=== PATIENT | female | born 1955 | race Caucasian/White ===

== ENCOUNTER 2019-01-31 10:55 | Outpatient (REF) | payer SELFPAY ==
[2019-01-31 13:54] LABS: TSH 1.33 uIU/mL (0.358-3.74)
== END 2019-01-31 11:15 ==
LOC: NCHCN 10:55
PROVIDERS: PCP Nurse Practitioner Family; Visit Provider Nurse Practitioner Family
DX: E03.9 Hypothyroidism, unspecified (principal)
CPT/HCPCS: 84443

== ENCOUNTER 2019-04-09 08:39 | Inpatient (IN) | payer SELFPAY ==
[2019-04-09] VITALS (13 sets, daily range): BP systolic 146–200; BP diastolic 61–104; PULSE 60–96; RESP 14–31; TEMP 36.2–36.7; O2SAT 92–97
--- NOTE | 2019-04-09 08:40 | W.ED.GENAD ---
Discharge Plan Disposition Patient Disposition: [facility] INPATIENT Condition: Good Discharge Details Chief Complaint: Abd Prob Clinical Impression: Gallstone, Abdominal pain, RUQ Admit Date/Time: 04/09/19 13:05 Admit Provider: Edel Ken Attending Provider: Edel Ken Primary Care Provider: Ema Perez ED Provider: Farshad Santillan Medical Decision Making This is a pleasant 63-year-old female with a past medical history of thyroid disease, she presents today for evaluation of right upper quadrant abdominal pain. 1 week ago she developed symptoms of an upper respiratory infection with cough, productive sputum. She was given oral steroids and azithromycin and a puffer. She has had this for 4 days and noticed a notable improvement in her cough, however she has had a continued significant increase in right upper quadrant pain over the last week. She had an episode of notable diarrhea this morning. No vomiting. She is still eating. Exam demonstrates notable abdominal distention, bowel sounds are present, bedside portable limited ultrasound demonstrates gallbladder with questionable mild pericholecystic fluid, gallbladder wall is around 3.5 to 4 cm and notably hyperechoic. Differential includes gallbladder pathology, pancreatitis, notable distention potential gastritis or obstruction less likely. Patient does not have insurance, we had a long discussion about the risks and benefits of imaging work-up, cost, and risk for lack of complete diagnosis. Patient understands these, and is agreed to go ahead with laboratory and imaging work-up. We will rehydrate, give Toradol for pain, Zofran for nausea and reassess. 1 PM. Patient was reassessed. Laboratory work-up is returned benign. CT scan results have returned and demonstrate a notable large stone in the neck of the gallbladder is most likely the source of the patient's pain. Although she has had mild improvement with the Toradol, pain is still significantly present. We will give Ofirmev, she continues to state that she does not want any narcotics as this causes severe vomiting for quite some time. Patient the patient's continued symptomatology we have contacted the surgeon Dr. Hancock, discussed the case with her. She has come and assessed the patient himself. She does feel that the patient would be a good candidate for surgery in the next 24 hours. Patient will be admitted to the floor as her pain is not managed with oral medications. We discussed the plan with the patient. As well as Dr. Hancock. I have extensively reviewed the treatment plan with the patient. I have addressed all patient concerns at this time. I have also discussed the plan with the admitting physician and they agree with the current assessment and plan and have agreed to assume responsibility for the patient. All parties demonstrate verbal understanding and agreement with our assessment and plan at this time. EKG 9: 05 Rate 76, intervals normal, sinus rhythm, no significant ST elevations or depressions. Small Q waves in lead II, III and aVF, potentially from previous old infarct. No evidence of STEMI. FINDINGS: Lungs: Unremarkable. No consolidation. Pleural space: Unremarkable. No pleural effusion. No pneumothorax. Heart/Mediastinum: Unremarkable. No cardiomegaly. Bones/joints: Unremarkable. IMPRESSION: No acute findings. Dictated and Authenticated by: Nacho Ramirez MD. Ordering:FERNANDO Hollingsworth MD EXAM: CT Abdomen and Pelvis With Contrast EXAM DATE/TIME: 04/09/2019 8:58 AM CLINICAL HISTORY: 63 years old, female; Abdominal pain; Patient HX: Distention, ruq pain TECHNIQUE: Imaging protocol: Axial computed tomography images of the abdomen and pelvis with intravenous contrast. Coronal and sagittal reformatted images were created and reviewed. COMPARISON: No relevant prior studies available. FINDINGS: Liver: Normal. No mass. Gallbladder and bile ducts: Solitary gallstone within the gallbladder. Pancreas: Normal. No ductal dilation. Spleen: One or more accessory splenules. Adrenals: Left adrenal hyperplasia. Kidneys and ureters: Normal. No hydronephrosis. Stomach and bowel: Moderate diverticulosis. Appendix: Normal appendix. Intraperitoneal space: Normal. No free air. No significant fluid collection. Vasculature: Calcification of the abdominal aorta and/or iliac arteries consistent with atherosclerotic vessel disease. Lymph nodes: Normal. No enlarged lymph nodes. Bladder: Unremarkable as visualized. Reproductive: Unremarkable as visualized. Bones/joints: There are postoperative changes over the left hip with metallic artifact. Soft tissues: Unremarkable. IMPRESSION: 1. Solitary gallstone within the gallbladder. 2. Normal appendix. 3. Moderate diverticulosis. Dictated and Authenticated by: Nacho Ramirez MD. Ordering:MICHELLE Yen MD HPI General Date/Time Provider Initiated Documentation: 04/09/19 08:39. HPI Narrative: This is a 63-year-old female with a past medical history of tobacco abuse for which she states she quit this past July, as well as thyroid disease, who presents today for evaluation of right upper quadrant abdominal pain. Patient states that one week ago she developed upper respiratory symptoms with cough, sore throat and productive sputum. After a day or so of cough she developed right upper quadrant abdominal pain made worse with coughing. She was given steroids azithromycin and a puffer and has been taking these for the last 4 days and has not noticed a significant improvement in the cough and sputum productivity however she is also noticed that the right upper quadrant pain is significantly worsened, even with the improvement of the coughing. Additionally she has had severe bloating, and diarrhea that started today. She denies any vomiting but does admit to mild nausea. She denies any hematochezia melena or acholic stool. She denies any fever or chills. She has been taking Tylenol and Motrin daily but this is not improve the pain at all. She denies any chest pain, chest heaviness, chest tightness, arm neck or shoulder pain. She denies any alcohol intake. She denies any previous abdominal surgery. She denies any other complaints at this time. Related Data Home Medications Medication Instructions Recorded Confirmed levothyroxine 75 mcg PO DAILY 12/12/12 04/09/19 acetaminophen [Tylenol] 1,000 mg PRN PRN 05/05/15 04/09/19 azithromycin 250 mg PO DIRECTED #6 tablet 07/12/15 04/09/19 albuterol sulfate 2 puff INHALATION PRN PRN 04/09/19 04/09/19 prednisone 40 mg PO DAILY 04/09/19 04/09/19 Previous Rx's Medication Instructions Recorded azithromycin 250 mg PO DIRECTED #6 tablet 07/12/15 Allergies Allergy/AdvReac Type Severity Reaction Status Date / Time Opioids - Morphine Analogues AdvReac Mild Nausea/Vomi Unverified 04/09/19 12:50 ting Review of Systems Review of Systems All systems reviewed & are unremarkable except as noted in HPI and below PFSH Social History Smoking/Tobacco Use Status: Former Tobacco Use Alcohol Intake: never Drug use: Never Substance use type: does not use Do you feel safe at home: Yes Exam Narrative Exam Narrative: 1.Const: Well-nourished, Well-developed, appearing stated age 2.Eyes: PERRL, no conjunctival injection, and symmetrical lids. 3.ENT: Atraumatic external nose and ears. Moist MM. Neck: Symmetric, trachea midline, No thyromegaly. 4.CVS: +S1/S2, No murmurs or gallops. Peripheral pulses 2+ and equal in all extremities. Brisk capillary refill in all extremities. 5.RESP: Unlabored respiratory effort. Clear to auscultation bilaterally. No wheezes rales or rhonchi 6.GI: Slightly firm, notably distended, bowel sounds present, notable right upper quadrant tenderness. No pain in the right lower quadrant, no pain in the left lower quadrant. Mild epigastric tenderness. No hepatosplenomegaly. 7.MSK: Normocephalic/Atraumatic, Extremities w/o deformity or ttp No cyanosis or clubbing, Normal movement of all extremities 8.Skin: Warm, Dry. No rashes or lesions. 9.Neuro: supervisor agency appointments II-XII grossly intact. Sensation grossly intact, no focal neurologic deficits. 10.Psych: (AAO) x3. Appropriate mood and affect
--- NOTE | 2019-04-09 08:55 | DI.RAD_ITS ---
SYMPTOM/DIAGNOSIS: PNEUMONIA PA AND LATERAL CHEST: The heart is not enlarged. The lungs appear generally clear with some apparent changes of scarring. No pleural effusion is seen. CONCLUSION: No evidence of acute disease. ABDOMEN AND PELVIC CT: CT examination of the abdomen and pelvis was performed with a bolus infusion of 100 cc's of Omnipaque 350 and ingestion of dilute barium. Images obtained through the lung bases are unremarkable. Liver, spleen and pancreas appear normal. Note is made of cholelithiasis. No biliary dilatation. Adrenals and kidneys appear normal. Note is made of a large amount of fecal material in the cecum but no gross evidence of obstruction. Appendix is normal. No abdominal or pelvic adenopathy. No abdominal or pelvic wall hernia. Note is made of apparent endometrial thickening of the uterus. Correlation with pelvic ultrasound recommended. CONCLUSION: 1. Cholelithiasis. 2. Question endometrial thickening of the uterus, correlation with pelvic ultrasound is recommended to evaluate the possibility of endometrial thickening in this postmenopausal patient.
[2019-04-09] MEDS: Ketorolac 30 MG/ML VIAL IVP (09:15)
[2019-04-09] MEDS: Ondansetron 4 MG/2 ML VIAL IVP (09:15)
[2019-04-09 09:24] LABS: Abs Immature Grans 0.12 k/cumm (0.0-0.09); Absolute Basophil Count 0.04 k/cumm (0.0-0.2); Absolute Eosinophil Count 0.07 k/cumm (0.0-0.7); Absolute Lymphocyte Count 2.62 k/cumm (1.2-3.4); Absolute Monocyte Count 0.81 k/cumm (0.11-0.7); Absolute Neutrophil Count 5.83 k/cumm (1.2-6.7); Basophils % 0.4; Eosinophils % 0.7; HCT 41.1 % (36.0-46.0); HGB 13.6 g/dL (12.0-15.5); Immature Grans % 1.3; Lymphocytes % 27.6; Mean Corp. HGB Concentration 33.1 g/dL (32.0-36.0); Mean Corpuscular Hemoglobin 30.7 pg (27.0-33.0); Mean Corpuscular Volume 92.8 fL (80-95); Mean Platelet Volume 10.2 fL (8.0-11.0); Monocytes % 8.5; Neutrophils % 61.5; Platelet Count 265 x1000/uL (130-400); RBC 4.43 m/cumm (4.00-5.20); RBC Distribution Width 13.5 % (11.7-14.6); White Blood Cell Count 9.49 k/cumm (4.4-10.8)
[2019-04-09 09:40] LABS: ALT 20 U/L (12-78); AST 11 U/L (15-37); Albumin 3.5 g/dL (3.4-5.0); Alkaline Phosphatase 94 U/L (46-116); Anion Gap 9.2 mmol/L (3-11); BUN 16 mg/dL (7-18); Bilirubin, Total 0.5 mg/dL (0.2-1.0); CO2 26.8 mmol/L (21.0-32.0); Calcium 8.7 mg/dL (8.5-10.1); Chloride 104 mmol/L (98-107); Estimated GFR 56.18 (mL/min/1.73m2); Glucose 88 mg/dL (70-100); Lipase 115 U/L (73-393); Potassium 3.5 mmol/L (3.5-5.1); Sodium 140 mmol/L (136-145); Total Protein 7.3 g/dL (6.4-8.2)
[2019-04-09 09:42] LABS: Troponin I < 0.05 ng/mL (0.00-0.06)
[2019-04-09] MEDS: Omnipaque 350 MG/ML 100 ML BTL IJ (10:24)
[2019-04-09] MEDS: Omnipaque 350 MG/ML 50 ML BTL PO (10:25)
[2019-04-09] MEDS: Breeza Beverage 473 ML BTL PO (10:25)
--- NOTE | 2019-04-09 10:35 | DI.VRAD_ITS ---
Addendum created by Nacho Ramirez MD on 04/09/2019 11:00:10 AM EDT THIS REPORT CONTAINS FINDINGS THAT MAY BE CRITICAL TO PATIENT CARE. The findings were verbally communicated via telephone conference with CABRERA CONNELL at 11:00 AM EDT on 04/09/2019. The findings were acknowledged and understood. Initial report created on 04/09/2019 10:35:12 AM EDT EXAM: CT Abdomen and Pelvis With Contrast EXAM DATE/TIME: 04/09/2019 8:58 AM CLINICAL HISTORY: 63 years old, female; Abdominal pain; Patient HX: Distention, ruq pain TECHNIQUE: Imaging protocol: Axial computed tomography images of the abdomen and pelvis with intravenous contrast. Coronal and sagittal reformatted images were created and reviewed. COMPARISON: No relevant prior studies available. FINDINGS: Liver: Normal. No mass. Gallbladder and bile ducts: Solitary gallstone within the gallbladder. Pancreas: Normal. No ductal dilation. Spleen: One or more accessory splenules. Adrenals: Left adrenal hyperplasia. Kidneys and ureters: Normal. No hydronephrosis. Stomach and bowel: Moderate diverticulosis. Appendix: Normal appendix. Intraperitoneal space: Normal. No free air. No significant fluid collection. Vasculature: Calcification of the abdominal aorta and/or iliac arteries consistent with atherosclerotic vessel disease. Lymph nodes: Normal. No enlarged lymph nodes. Bladder: Unremarkable as visualized. Reproductive: Unremarkable as visualized. Bones/joints: There are postoperative changes over the left hip with metallic artifact. Soft tissues: Unremarkable. IMPRESSION: 1. Solitary gallstone within the gallbladder. 2. Normal appendix. 3. Moderate diverticulosis. Dictated and Authenticated by: Nacho Ramirez MD. Ordering:MICHELLE Yen MD
[2019-04-09] MEDS: ACETAMINOPHEN 1,000 MG/100 ML BTL 400 MG IVPB ×3 (12:21→20:01)
[2019-04-09 12:30] LABS: Bilirubin Negative (Negative); Blood Trace-intact (Negative); Clarity Clear (Clear); Glucose Negative (Negative); Ketones Negative (Negative); Leukocyte Esterase Negative (Negative); Nitrite Negative (Negative); Urobilinogen 0.2 EU/dL (Up TO 0.2)
--- NOTE | 2019-04-09 12:44 | DI.VRAD_ITS ---
EXAM: XR Chest, 2 Views EXAM DATE/TIME: 04/09/2019 12:33 PM CLINICAL HISTORY: 63 years old, female; Shortness of breath TECHNIQUE: Imaging protocol: XR of the chest, 2 views. COMPARISON: CR CHEST 2 VIEWS PA,LAT 10/08/2016 1:13 PM FINDINGS: Lungs: Unremarkable. No consolidation. Pleural space: Unremarkable. No pleural effusion. No pneumothorax. Heart/Mediastinum: Unremarkable. No cardiomegaly. Bones/joints: Unremarkable. IMPRESSION: No acute findings. Dictated and Authenticated by: Nacho Ramirez MD. Ordering:FERNANDO Hollingsworth MD
[2019-04-09 12:52] LABS: Bacteria Negative HPF (Negative); C & S Indicated? No; Casts Negative LPF (Negative); Crystals Negative HPF (Negative); Epithelial Cells Rare HPF (Negative); Mucus Negative (Negative); RBC 0-2 (0-2); WBC Negative HPF (0-5)
--- NOTE | 2019-04-09 13:50 | HPE_ITS ---
Date of service: 04/09/19 Time of Service: 13:50 Assessment and Plan (1) Impacted gallstone of cystic duct: Current visit: Yes Status: Acute Patient is doing okay. We are having a hard time controlling her pain. She is received Toradol and Tylenol. These do not really touch it. She cannot take narcotics. She is very nauseated she cannot take any fluids. No fever no white count. Her chest x-ray is clear. But she was on a high dose of steroids for the past 5 days and consider stress dose before surgery because we cannot get her pain in control we will admit her for pain management and plan doing surgery in a.m. I did discuss with her what she could expect during the procedure post procedurally recovery time and risks. Risks include but are not limited to: Bleeding, infection, pneumonia, blood clots,. Possible damage to bowel, bladder, blood vessels, bile ducts. (Possible open procedure. Possible both cholecystogram. Possible need for stone extraction if she does have a ileus. Possible open procedure. Possible complications from anesthesia. She will need to be off work for about a week afterwards. She will be admitted and started on antibiotics and supportive care. History of Present Illness Consults Consult date: 04/09/19 Requesting physician: Farshad Santillan Narrative: From ed notes: This is a pleasant 63-year-old female with a past medical history of thyroid disease, she presents today for evaluation of right upper quadrant abdominal pain. 1 week ago she developed symptoms of an upper respiratory i nfection with cough, productive sputum. She was given oral steroids and azithromycin and a puffer. She has had this for 4 days and noticed a notable improvement in her cough, however she has had a continued significant increase in right upper quadrant pain over the last week. She had an episode of notable diarrhea this morning. No vomiting. She is still eating. Exam demonstrates notable abdominal distention, bowel sounds are present, bedside portable limited ultrasound demonstrates gallbladder with questionable mild pericholecystic fluid, gallbladder wall is around 3.5 to 4 cm and notably hyperechoic. Patient does not have insurance, prior to the last few days pt has had no s/s. She has signif pain and is not able to get comfortable. feels nauseated. Diarrhea yest. Very bloated and distended. Rads was queried about a gallstone ileus- they did not think this was a concern. She did not know she had gasslstones. She has not had problems w/ H/I. No problems w/ RUQ pain in past. No problems w/ back pain or diarrhea. she was on 20mg prednisone for her nroncitis. She did quit smoking 9m ago. Review of Systems Review of Systems All systems reviewed & are unremarkable except as noted in HPI and below Constitutional Reports as per HPI, Reports system reviewed and no additional complaints, except as docu, Denies anorexia, Denies chills, Denies difficulty sleeping, Denies fatigue, Denies headache(s), Denies lethargy, Denies malaise, Denies poor appetite, Denies weakness, Denies weight gain and Denies weight loss Eyes Reports as per HPI, Reports system reviewed and no additional complaints, except as docu and Denies change in vision ENT Reports system reviewed and no additional complaints, except as docu, Reports as per HPI, Denies change in voice, Denies dental pain, Denies dysphagia, Denies dizziness, Denies facial pain, Denies headache(s) and Denies odynophagia Cardiovascular Reports as per HPI, Reports system reviewed and no additional complaints, except as docu, Denies chest pain, Denies chest pain with activity, Denies syncope, Denies leg edema and Denies dyspnea Respiratory Reports as per HPI, Reports system reviewed and no additional complaints, except as docu, Denies chest congestion, Denies cough, Denies pain with cough and Denies dyspnea Gastrointestinal Reports as per HPI, Reports system reviewed and no additional complaints, except as docu, Reports abdominal pain, Reports bloating, Denies change in bowel habits, Denies change in stool character, Denies constipation, Reports cramping, Denies dysphagia, Denies early satiety, Reports heartburn, Reports diarrhea, Reports loose stools, Reports nausea, Denies odynophagia and Denies vomiting Comments: only sx ws post tubal Musculoskeletal Reports system reviewed and no additional complaints, except as docu, Reports as per HPI, Denies abnormal gait, Denies arthralgias and Denies muscle weakness Integumentary/Breasts Reports system reviewed and no additional complaints, except as docu, Reports as per HPI, Denies changing lesions, Denies new lesions and Denies jaundice Neurologic Reports system reviewed and no additional complaints, except as docu, Reports as per HPI, Denies abnormal speech, Denies abnormal gait, Denies dizziness, Denies syncope, Denies headache(s), Denies memory loss and Denies weakness Psychiatric Reports system reviewed and no additional complaints, except as docu, Reports as per HPI, Denies change in appetite and Denies memory loss Endocrine Denies fatigue, Denies polydipsia and Denies polyuria Hematologic/Lymphatic Reports system reviewed and no additional complaints, except as docu, Denies easy bleeding and Denies easy bruising Allergic/Immunologic Denies system reviewed and no additional complaints, except as docu, Reports as per HPI and Denies urticaria PFSH Social History Smoking/Tobacco Use Status: Former Tobacco Use Alcohol Intake: never Drug use: Never Substance use type: does not use Do you feel safe at home: Yes Meds Home Medications Medication Instructions Recorded Confirmed Type levothyroxine 75 mcg PO DAILY 12/12/12 04/09/19 History acetaminophen [Tylenol] 1,000 mg PRN PRN 05/05/15 04/09/19 History azithromycin 250 mg PO DIRECTED #6 tablet 07/12/15 04/09/19 Rx albuterol sulfate 2 puff INHALATION PRN PRN 04/09/19 04/09/19 History prednisone 40 mg PO DAILY 04/09/19 04/09/19 History Allergies Allergy/AdvReac Type Severity Reaction Status Date / Time Opioids - Morphine Analogues AdvReac Mild Nausea/Vomi Unverified 04/09/19 12:50 ting Exam Const General: cooperative, healthy appearing, comfortable, no acute distress, well developed and well groomed Nutritional Appearance: average body habitus and well nourished Orientation: alert, awake and oriented x3 HENMT Head: normal to inspection, normocephalic and atraumatic Ears: hearing grossly normal bilaterally and external ears normal General nose exam: external nose normal Face and sinus: normal facial exam and sinuses nontender Mouth: oral mucosae normal, lip normal, tongue normal and moist mucous membranes Teeth and gingiva: dentition normal Eyes General: appearance normal, both eyes and all related structures Conjunctivae: conjunctivae normal Sclera: sclerae normal Pupils: PERRL Neck Neck: normal visual inspection and full ROM Chest Chest: normal inspection of the chest Resp Effort & Inspection: normal respiratory effort, able to speak in complete sentences, no cough, no nasal flaring, not tachypneic and no use of accessory muscles Auscultation: clear to auscultation bilaterally, no rales, no rhonchi and no wheezes Cardio Jugular venous pressure: no JVD Rate: regular rate Rhythm: regular rhythm GI Inspection: normal to inspection, no edema, distended, obesity, scar and striae Palpation: soft, no masses, tender and No ascites Auscultation: normal bowel sounds Other: ruq pain. pt can't get comfortable. won't take narcotics. Skin General skin exam: no rashes or lesions noted Trauma: no lacerations or abrasions Neuro General: alert, oriented x3, oriented, gait normal, moves all extremities, no focal motor deficits and CN's II-XI intact bilaterally Cognition: normal cognition Speech: speech normal Gait: normal gait Motor: muscle tone normal throughout Extrem General: normal to inspection, full ROM and no clubbing, cyanosis or edema Psych Appearance: grossly normal and well kempt Mental Status: mental status grossly normal Speech and Movement: speech and movement normal Affect: normal affect Results Labs : 04/09/19 09:10 04/09/19 09:10 Laboratory Results - last 24 hr 04/09/19 04/09/19 04/09/19 09:10 09:10 12:23 WBC 9.49 RBC 4.43 Hgb 13.6 Hct 41.1 MCV 92.8 MCH 30.7 MCHC 33.1 RDW 13.5 Plt Count 265 MPV 10.2 Immature Gran % 1.3 Neutrophils % 61.5 Lymphocytes % 27.6 Monocytes % 8.5 Eosinophils % 0.7 Basophils % 0.4 Absolute Neutrophils 5.83 Absolute Lymphocytes 2.62 Absolute Monocytes 0.81 H Absolute Eosinophils 0.07 Absolute Basophils 0.04 Sodium 140 Potassium 3.5 Chloride 104 Carbon Dioxide 26.8 Anion Gap 9.2 BUN 16 Creatinine 1.00 Estimated GFR/1.73 m2 56.18 Glucose 88 Calcium 8.7 Total Bilirubin 0.5 AST 11 L ALT 20 Alkaline Phosphatase 94 Troponin I < 0.05 Total Protein 7.3 Albumin 3.5 Lipase 115 Urine Color Yellow Urine Clarity Clear Urine pH 7.0 Ur Specific [place] 1.010 Urine Protein Negative Urine Ketones Negative Urine Blood Trace-intact H Urine Nitrite Negative Urine Bilirubin Negative Urine Urobilinogen 0.2 Ur Leukocyte Esterase Negative Urine RBC 0-2 Urine WBC Negative Ur Epithelial Cells Rare Urine Crystals Negative Urine Bacteria Negative Urine Casts Negative Urine Mucus Negative Ur Culture Indicated? No Urine Glucose Negative Last Vital Signs Temp 36.7 C 04/09/19 13:46 Pulse 60 04/09/19 13:46 Resp 14 04/09/19 13:46 BP 146/61 H 04/09/19 13:46 Pulse Ox 93 L 04/09/19 13:46
[2019-04-09] MEDS: Normal Saline Flush 10 ML SYR IVP ×2 (14:21→20:02)
[2019-04-09] MEDS: Normal Saline 1,000 ML 150 ML IV ×2 (14:22→21:12)
[2019-04-09] MEDS: LORazepam 2 MG/ML VIAL 0.5 MG IVP (14:52)
[2019-04-09] MEDS: PIPERACILLIN/TAZO 4.5 GM in Normal Saline 100 ML IVPB ×2 (15:23→21:11)
[2019-04-09] MEDS: traMADol 50 MG TAB PO ×2 (16:48→22:29)
[2019-04-10] VITALS (11 sets, daily range): BP systolic 89–181; BP diastolic 42–94; PULSE 48–64; RESP 15–20; TEMP 36–36.7; O2SAT 90–99
[2019-04-10] MEDS: ACETAMINOPHEN 1,000 MG/100 ML BTL 400 MG IVPB ×2 (01:48→14:15)
[2019-04-10] MEDS: PIPERACILLIN/TAZO 4.5 GM in Normal Saline 100 ML IVPB ×4 (02:22→20:37)
[2019-04-10] MEDS: Normal Saline 1,000 ML 150 ML IV ×3 (03:28→21:31)
[2019-04-10] MEDS: traMADol 50 MG TAB PO (05:24)
[2019-04-10] MEDS: Levothyroxine 75 MCG TAB PO (05:24)
--- NOTE | 2019-04-10 07:32 | DI.RAD_ITS ---
SYMPTOM/DIAGNOSIS: ILEUS ABDOMEN: Three views were obtained. There is contrast material in the colon following yesterday's contrast enhanced CT. No other significant finding. No evidence of obstruction.
[2019-04-10] MEDS: Ondansetron 4 MG/2 ML VIAL IVP (07:46)
[2019-04-10] MEDS: Normal Saline Flush 10 ML SYR IVP ×2 (07:47→19:12)
[2019-04-10 07:49] LABS: Abs Immature Grans 0.04 k/cumm (0.0-0.09); Absolute Basophil Count 0.02 k/cumm (0.0-0.2); Absolute Eosinophil Count 0.06 k/cumm (0.0-0.7); Absolute Lymphocyte Count 3.66 k/cumm (1.2-3.4); Absolute Monocyte Count 0.97 k/cumm (0.11-0.7); Absolute Neutrophil Count 4.36 k/cumm (1.2-6.7); Basophils % 0.2; Eosinophils % 0.7; HCT 39.3 % (36.0-46.0); HGB 12.7 g/dL (12.0-15.5); Immature Grans % 0.4; Lymphocytes % 40.2; Mean Corp. HGB Concentration 32.3 g/dL (32.0-36.0); Mean Corpuscular Hemoglobin 30.4 pg (27.0-33.0); Mean Platelet Volume 10.3 fL (8.0-11.0); Monocytes % 10.6; Neutrophils % 47.9; Platelet Count 252 x1000/uL (130-400); RBC 4.18 m/cumm (4.00-5.20); RBC Distribution Width 13.4 % (11.7-14.6); White Blood Cell Count 9.11 k/cumm (4.4-10.8)
[2019-04-10 08:14] LABS: ALT 17 U/L (12-78); AST 11 U/L (15-37); Albumin 3.1 g/dL (3.4-5.0); Alkaline Phosphatase 77 U/L (46-116); Amylase 43 U/L (25-115); Anion Gap 11.2 mmol/L (3-11); BUN 9 mg/dL (7-18); Bilirubin, Total 0.8 mg/dL (0.2-1.0); CO2 25.8 mmol/L (21.0-32.0); CREATININE 0.95 mg/dL (0.55-1.02); Calcium 7.9 mg/dL (8.5-10.1); Chloride 105 mmol/L (98-107); Estimated GFR 59.61 (mL/min/1.73m2); Glucose 83 mg/dL (70-100); Lipase 63 U/L (73-393); Potassium 3.3 mmol/L (3.5-5.1); Sodium 142 mmol/L (136-145); Total Protein 6.5 g/dL (6.4-8.2)
--- NOTE | 2019-04-10 08:44 | DI.VRAD_ITS ---
EXAM: XR Abdomen, 2 Views EXAM DATE/TIME: 04/10/2019 12:06 AM CLINICAL HISTORY: 63 years old, female; Other: Ileus TECHNIQUE: Imaging protocol: Frontal view of the abdomen/pelvis with upright view of the abdomen. COMPARISON: CT ABDOMEN PELVIS W 04/09/2019 10:13 AM FINDINGS: Gastrointestinal tract: Contrast is visualized throughout the colon.. No obstruction. Intraperitoneal space: Normal. No free air. Bones/joints: Unremarkable for age. IMPRESSION: Contrast is visualized throughout the colon.. No obstruction. Dictated and Authenticated by: Mauricio Chase MD. Ordering:FERNANDO Hollingsworth MD
--- NOTE | 2019-04-10 09:36 | W.PM.PROGNOT ---
Date of Service Date of service: 04/10/19 Time of Service: 09:37 Assessment and Plan (1) Impacted gallstone of cystic duct: Current visit: Yes Status: Acute Plan: The patient is scheduled for laparoscopic cholecystectomy. The alternatives to surgery, risks, complications, and the possible need to convert to open cholecystectomy was discussed. Also bleeding, infection, pneumonia, blood clots, complications of anesthesia, damage to bowel, bladder, blood vessels, or bile ducts, liver, need for blood transfusions. Also: chronic pain, chronic diarrhea, reoccurrence of signs and symptoms, port site hernias, adhesions. All questions were answered and the patient elected to proceed with surgery. -stress dose steriods- pt has been on tid prednose 20mg for lsat week -on abx -labs stable no signif changes in past 24 hrs adn stable for procedure taday wants to avoid narcs Subjective Interval history since last seen: pt still having losts of pain. + naseua. just feels miserable no headaches. No CP or SOB. no productive cough. no dysuria. no leg pain or swelling. Exam Const General: cooperative, healthy appearing, comfortable, no acute distress, well developed and well groomed Nutritional Appearance: average body habitus and well nourished Orientation: alert, awake and oriented x3 HENMT Head: normal to inspection, normocephalic and atraumatic Ears: hearing grossly normal bilaterally and external ears normal General nose exam: external nose normal Face and sinus: normal facial exam and sinuses nontender Mouth: oral mucosae normal, lip normal, tongue normal and moist mucous membranes Teeth and gingiva: dentition normal Eyes General: appearance normal, both eyes and all related structures Conjunctivae: conjunctivae normal Sclera: sclerae normal Pupils: PERRL Neck Neck: normal visual inspection and full ROM Chest Chest: normal inspection of the chest Resp Effort & Inspection: normal respiratory effort, able to speak in complete sentences, no cough, no nasal flaring, not tachypneic and no use of accessory muscles Auscultation: clear to auscultation bilaterally, no rales, no rhonchi and no wheezes Cardio Jugular venous pressure: no JVD Rate: regular rate Rhythm: regular rhythm GI Inspection: normal to inspection, no edema and non-distended Palpation: soft, no masses, tender and No ascites Auscultation: normal bowel sounds Other: ruq pain adn guarding Skin General skin exam: no rashes or lesions noted Trauma: no lacerations or abrasions Neuro General: alert, oriented x3, oriented, gait normal, moves all extremities, no focal motor deficits and CN's II-XI intact bilaterally Cognition: normal cognition Speech: speech normal Gait: normal gait Motor: muscle tone normal throughout Extrem General: normal to inspection, full ROM and no clubbing, cyanosis or edema Psych Appearance: grossly normal and well kempt Mental Status: mental status grossly normal Speech and Movement: speech and movement normal Affect: normal affect Objective Objective Clinical Data: Abnormal lab results 04/09/19 04/09/19 04/10/19 Range/Units 09:10 12:23 07:03 Absolute Lymphocytes (1.2-3.4) k/cumm Absolute Monocytes (0.11-0.7) k/cumm Potassium 3.3 L (3.5-5.1) mmol/L Anion Gap 11.2 H (3-11) mmol/L Calcium 7.9 L (8.5-10.1) mg/dL AST 11 L 11 L (15-37) U/L Albumin 3.1 L (3.4-5.0) g/dL Lipase 63 L (73-393) U/L Urine Blood Trace-intact H (Negative) 04/10/19 Range/Units 07:03 Absolute Lymphocytes 3.66 H (1.2-3.4) k/cumm Absolute Monocytes 0.97 H (0.11-0.7) k/cumm Potassium (3.5-5.1) mmol/L Anion Gap (3-11) mmol/L Calcium (8.5-10.1) mg/dL AST (15-37) U/L Albumin (3.4-5.0) g/dL Lipase (73-393) U/L Urine Blood (Negative) Vital Signs Temperature 36.0 C L 04/10/19 08:15 Temperature Source Tympanic 04/10/19 08:15 Pulse 62 04/10/19 08:15 Pulse Rhythm Regular 04/09/19 19:50 Pulse 76 04/09/19 08:47 Respiratory Rate 20 04/10/19 08:15 Respiratory Effort Non-Labored 04/09/19 19:50 Respiratory Depth Normal 04/09/19 19:50 Respiratory Pattern Normal 04/09/19 19:50 Blood Pressure 181/82 H 04/10/19 08:15 Blood Pressure Mean 89 04/09/19 13:31 Pulse Oximetry 96 04/10/19 08:15 Oxygen Delivery Method Room Air 04/10/19 08:15 Oxygen Flow Rate 0 04/10/19 08:15 Pain Level 9 04/10/19 08:15 Intake & Output 04/09/19 04/09/19 04/10/19 11:59 23:59 11:59 Intake Total 2220 / 2220 1240 / 1240 Balance 2220 / 2220 1240 / 1240 Weight 77.111 kg 77.111 kg 77.111 kg Intake: IV 1500 / 1500 1240 / 1240 Oral 720 / 720 Other: Urine Color Yellow Pale Yellow Urine Appearance Clear Clear Urine Odor Normal None Comment Voiding ad caty; mixed with diarrheal stool multiple times. pt state she voids without any difficulties Stool Size Moderate Stool Characteristics Liquid Brown Voiding Methods Toilet Toilet Laboratory Results WBC 9.11 k/cumm (4.4-10.8) 04/10/19 07:03 RBC 4.18 m/cumm (4.00-5.20) 04/10/19 07:03 Hgb 12.7 g/dL (12.0-15.5) 04/10/19 07:03 Hct 39.3 % (36.0-46.0) 04/10/19 07:03 MCV 94.0 fL (80-95) 04/10/19 07:03 MCH 30.4 pg (27.0-33.0) 04/10/19 07:03 MCHC 32.3 g/dL (32.0-36.0) 04/10/19 07:03 RDW 13.4 % (11.7-14.6) 04/10/19 07:03 Plt Count 252 x1000/uL (130-400) 04/10/19 07:03 MPV 10.3 fL (8.0-11.0) 04/10/19 07:03 Immature Gran % 0.4 04/10/19 07:03 47.9 04/10/19 07:03 40.2 04/10/19 07:03 10.6 04/10/19 07:03 0.7 04/10/19 07:03 0.2 04/10/19 07:03 Absolute Neutrophils 4.36 k/cumm (1.2-6.7) 04/10/19 07:03 Absolute Lymphocytes 3.66 k/cumm (1.2-3.4) H 04/10/19 07:03 Absolute Monocytes 0.97 k/cumm (0.11-0.7) H 04/10/19 07:03 Absolute Eosinophils 0.06 k/cumm (0.0-0.7) 04/10/19 07:03 Absolute Basophils 0.02 k/cumm (0.0-0.2) 04/10/19 07:03 Sodium 142 mmol/L (136-145) 04/10/19 07:03 Potassium 3.3 mmol/L (3.5-5.1) L 04/10/19 07:03 Chloride 105 mmol/L (98-107) 04/10/19 07:03 Carbon Dioxide 25.8 mmol/L (21.0-32.0) 04/10/19 07:03 11.2 mmol/L (3-11) H 04/10/19 07:03 BUN 9 mg/dL (7-18) D 04/10/19 07:03 0.95 mg/dL (0.55-1.02) 04/10/19 07:03 59.61 (mL/min/1.73m2) 04/10/19 07:03 Glucose 83 mg/dL (70-100) 04/10/19 07:03 Calcium 7.9 mg/dL (8.5-10.1) L 04/10/19 07:03 0.8 mg/dL (0.2-1.0) 04/10/19 07:03 AST 11 U/L (15-37) L 04/10/19 07:03 ALT 17 U/L (12-78) 04/10/19 07:03 77 U/L (46-116) 04/10/19 07:03 < 0.05 ng/mL (0.00-0.06) 04/09/19 09:10 6.5 g/dL (6.4-8.2) 04/10/19 07:03 3.1 g/dL (3.4-5.0) L 04/10/19 07:03 Amylase 43 U/L (25-115) 04/10/19 07:03 63 U/L (73-393) L 04/10/19 07:03 Yellow (Yellow) 04/09/19 12:23 Clear (Clear) 04/09/19 12:23 7.0 (5-8) 04/09/19 12:23 Ur Specific [place] 1.010 (1.005-1.025) 04/09/19 12:23 Negative mg/dL (Negative) 04/09/19 12:23 Negative mg/dL (Negative) 04/09/19 12:23 Trace-intact (Negative) H 04/09/19 12:23 Negative (Negative) 04/09/19 12:23 Negative (Negative) 04/09/19 12:23 0.2 EU/dL (Up TO 0.2) 04/09/19 12:23 Ur Leukocyte Esterase Negative (Negative) 04/09/19 12:23 0-2 (0-2) 04/09/19 12:23 Negative HPF (0-5) 04/09/19 12:23 Ur Epithelial Cells Rare HPF (Negative) 04/09/19 12:23 Negative HPF (Negative) 04/09/19 12:23 Negative HPF (Negative) 04/09/19 12:23 Negative LPF (Negative) 04/09/19 12:23 Negative (Negative) 04/09/19 12:23 Ur Culture Indicated? No 04/09/19 12:23 Negative mg/dL (Negative) 04/09/19 12:23
[2019-04-10] MEDS: Lactated Ringers 1,000 ML 30 ML IV (09:51)
--- NOTE | 2019-04-10 10:16 | PDOC.CMIN ---
Care Management Initial Assess REASON FOR HOSPITALIZATION:: RUQ Pain PAST MEDICAL HISTORY/PAST SURGICAL HISTORY:: No pertinent medical history listed. PREVIOUS FUNCTIONAL STATUS/SOCIAL/FAMILY SUPPORTS:: Ginny resides in [place], [place]. She is independent at baseline with a supportive family in the community including her two daughters and son. CURRENT FUNCTIONAL STATUS:: Ginny was brought to the OR this morning. CM will meet with her post surgically. ADVANCE DIRECTIVES:: None on file at [facility]. Has patient been provided with information about the portal?: Yes Did the patient sign up for the portal?: No CODE STATUS:: Full Code INSURANCE COVERAGE / FINANCIAL ISSUES:: Self Pay; [employer] and Financial Assistance resources to be provided. CURRENT HOME/COMMUNITY SERVICES/EQUIPMENT:: No current services or equipment. PRIMARY CARE PHYSICIAN:: Ema Perez POTENTIAL DISCHARGE NEEDS:: Follow up appointments. PATIENT/FAMILY EDUCATION NEEDS:: Review of discharge instructions, discuss Ask Me Three. ANTICIPATED BARRIERS TO DISCHARGE:: None identified. TRANSPORTATION:: Via private vehicle with family. PLAN:: Ginny will be closely monitored post operatively. Anticipate she will return home with no additional services at this time and transport via private vehicle with family. CM will continue to follow and support discharge planning considerations.
[2019-04-10] MEDS: Cellulose,Oxidized 4X8 1 PACKET MC (10:51)
--- NOTE | 2019-04-10 11:05 | GB_PTH ---
PATIENT: Ginny Suarez LOC: U#:[id number] AGE/SX: 63/F ROOM: RE04/09/[address]: Edel Ken : 1955 BED: A DIS: 04/11/2019 SPEC #: [id number] RECD: 04/11/19 12:33 STATUS: ELMER REQ #: [id number] FADY: 04/10/19 11:[address]: Edel Ken DEPT: Surgical Specimen RECD BY: Selene Lombardi ENTERED: 04/11/19 12:34 SP TYPE: GB OTHR DR: Ema Perez Tissues: 1 - GALLBLADDER Procedures: GROSS AND MICRO LEVEL 3 Comments: [id number]
--- NOTE | 2019-04-10 11:31 | W.PM.OP ---
Date of service: 04/10/19 Time of Service: 11:31 Operative Note DATE OF PROCEDURE: 04/10/19 PRE-OP DIAGNOSIS: acute on chronic cholecystitis/cholelithiasis/ipacted stone in neck POST-OP DIAGNOSIS: same PROCEDURE: himanshu tiesha SURGEON: Antionette Browning BULK SEALER OPERATOR: Juan Kelly ANESTHESIA: BERTHA ESTIMATED BLOOD LOSS: 10 PATHOLOGY: other COMPLICATIONS: None Patient was transported to: PACU Patient's condition: stable Indications: acute pain Findings: see note INDICATIONS: The pt seen at the request of by their PCP regarding acute on chronic cholecystitis, cholelithiasis and is here today for laparoscopic cholecystectomy. Informed consent was obtained, explaining risks and benefits of the procedure including but not limited to bleeding, infection, pneumonia, blood clots, possible damage to bowel, bladder, blood vessels, bile ducts, possible open procedure, complications of general anesthesia and other unforetold complications. PROCEDURE: The patient agrees and is brought to the operative room suite and placed in supine position. Anesthesia was administered per the Department of Anesthesia. The patient did receive IV antibiotics. NG tube and Jain catheter are placed. The patient was prepped and draped in the usual sterile fashion using DuraPrep scrub solution. Pause for the cause was done. 20 mL of 1% buffered lidocaine was used for local anesthetization. A stab incision was made in the umbilicus and the Verres inserted. Drop test was positive and insufflation was begun. When 15 mm of pressure was noted on the monitor, the Veress was removed and #5 port inserted. The camera was inserted through the port and shows no damage to underlying structures. A 10 mm port was then placed in the epigastric position under direct visualization following creation of local field blocks as well as two 5 mm ports in the right upper quadrant. The gallbladder fundus was grasped and retracted towards the right shoulder. Infundibulum was grasped and retracted laterally. The hepat-duodenal ligament is entered. The cystic duct and artery are dissected out and the most inferior portion of the gallbladder plate is removed from the liver and the critical view of safety was obtained after clearing away all fatty material. Endo Clips were placed across the duct and artery and these structures are divided. The remainder of the gallbladder was excised from the liver bed. The gallbladder was placed in a bag and brought out. Examination of the gallbladder shows indeed the cystic duct and artery to have been divided. The remainder of the abdomen was copiously irrigated with a liter of saline. All saline is removed. There is no bleeding or bile leakage from the liver bed or the clips sites. The Perez-Ward needle was used to close the 10 mm port site with an 0 Vicryl. All ports and instruments are removed. Pneumoperitoneum is evacuated and the port sites are monitored to make sure there is no bleeding at the time of desufflation. Port sites are irrigated and the skin is closed with 4-0 Monocryl in a running subcuticular fashion. Steri tapes and sterile dressings are applied. The patient tolerated the procedure well without complications, transferred to the recovery room in stable condition. ANTIONETTE BROWNING, DO
--- NOTE | 2019-04-10 12:17 | PHARADMIT ---
Admission Pharmacy Clinical Review RUQ PAIN (went to OR 04/10) Code Status Full Code Current Weight wGT-80.1 kg Renally Cleared and Narrow Therapeutic Index Meds CrCl~57.4mL/min Meds-OK QTc Value / Action Taken QTc-434 NA BP Control, Fever BP-157/67 Tmax- 36.4C Electrolytes reviewed Na-142 K+3.3 DVT Prophylaxis post-OP Opiate Usage / Scheduled Bowel Regimen Ordered Yes No Plt/SCr for Heparin / Enoxaparin Plts-252 SCr-0.95 INR for Warfarin na H/H stable, WBC/Bands H&H- 12.7/39.3 WBC- 9.11 Antibiotic appropriateness Zosyn Cultures and Sensitivities none Surgical ABX d/c within 24 hr No DM control / Insulin Dosing BG-83 Heart Failure (Check EF%) (ARJUN's, B-Block, Diuretics) NONE IV to PO Switch No Home Meds Reviewed Yes Home Meds Not Ordered Zithromax, Prednisone, Comments
--- NOTE | 2019-04-10 16:11 | W.PM.PROGNOT ---
Date of Service Date of service: 04/10/19 Time of Service: 16:11 Assessment and Plan (1) Impacted gallstone of cystic duct: Current visit: Yes Status: Acute Post Op Note the pt is seen after there recent lap tiesha. The case is reviewed with the patient; findings and the procedure/surgery were reviewed with the patient and family. The Patient's condition has been reviewed with the RN. Vitals have all been stable. Pain is controlled. She is tolerating po's. The patient has been able to void since surgery- clear yellow urine in an adequate amount. Antibiotics:zosyn DVT prophylaxis:scd and ambulate GI prophylaxis:diet as makenzie Constipation prophylaxis: MOM PHYSICAL EXAM GENERAL APPEARANCE: Alert, healthy appearance, oriented, in no acute distress SKIN: No rashes. HYDRATION: Well hydrated HEAD, EYES, EARS, NECK, AND THROAT: Head is normocephalic, pupils equal, round, reactive to light and accommodation, ocular movement intact, sclera clear and no jaundice or redness. Dentition intact. No eye pain. No thrush NECK: no sore throat. LUNGS: normal respiration, clear to auscultation Normal chest wall movement. No chest wall pain. HEART: Regular rate and rhythm. NSR and no ST or T waves changes. EXTREMITY: No edema or cyanosis ABDOMEN: dressings are clean dry and intact. appropriate pain at surgical site. + bowel sounds NEURO: no focal neuro deficits. The patient current medical condition and all orders reviewed with nursing. Patient is stable and doing well postOp and continue routine medical care. See orders. ANTIONETTE BROWNING D.O. (2) Acute cholecystitis due to biliary calculus: Current visit: Yes Status: Acute Objective Objective Clinical Data: Abnormal lab results 04/10/19 04/10/19 Range/Units 07:03 07:03 Absolute Lymphocytes 3.66 H (1.2-3.4) k/cumm Absolute Monocytes 0.97 H (0.11-0.7) k/cumm Potassium 3.3 L (3.5-5.1) mmol/L Anion Gap 11.2 H (3-11) mmol/L Calcium 7.9 L (8.5-10.1) mg/dL AST 11 L (15-37) U/L Albumin 3.1 L (3.4-5.0) g/dL Lipase 63 L (73-393) U/L Vital Signs Temperature 36.7 C 04/10/19 15:00 Temperature Source Tympanic 04/10/19 15:00 Pulse 55 L 04/10/19 15:00 Pulse Rhythm Regular 04/10/19 12:31 Pulse 76 04/09/19 08:47 Respiratory Rate 18 04/10/19 15:00 Respiratory Effort Non-Labored 04/10/19 14:57 Respiratory Depth Normal 04/10/19 12:31 Respiratory Pattern Normal 04/10/19 12:31 Blood Pressure 153/77 H 04/10/19 15:00 Blood Pressure Mean 89 04/09/19 13:31 Pulse Oximetry 97 04/10/19 15:00 Respiratory End-tidal CO2 22 04/10/19 11:55 Oxygen Delivery Method Room Air 04/10/19 15:00 Oxygen Flow Rate 0 04/10/19 15:00 Pain Level 0 04/10/19 11:55 Intake & Output 04/09/19 04/10/19 04/10/19 23:59 11:59 23:59 Intake Total 2220 / 2220 2950 / 4190 1240 / 4190 Output Total 300 / 1300 1000 / 1300 Balance 2220 / 2220 2650 / 2890 240 / 2890 Weight 77.111 kg 77.111 kg Intake: IV 1500 / 1500 2950 / 3950 1000 / 3950 Oral 720 / 720 240 / 240 Output: Urine 300 / 1300 1000 / 1300 Other: Urine Color Yellow Pale Yellow Urine Appearance Clear Clear Clear Urine Odor Normal Normal Normal Comment Voiding ad caty; mixed with diarrheal stool multiple times. Voiding multiple times in toilet; mixed with diarrhea. Three voids post surgery; on bedpan. Third void with hematuria; d/t catheter insertion in OR possibly. RN will continue to monitor. Stool Size Moderate Moderate Small Stool Characteristics Liquid Liquid Liquid Brown Brown Brown Emesis Description None Voiding Methods Toilet Toilet Bedpan Laboratory Results WBC 9.11 k/cumm (4.4-10.8) 04/10/19 07:03 RBC 4.18 m/cumm (4.00-5.20) 04/10/19 07:03 Hgb 12.7 g/dL (12.0-15.5) 04/10/19 07:03 Hct 39.3 % (36.0-46.0) 04/10/19 07:03 MCV 94.0 fL (80-95) 04/10/19 07:03 MCH 30.4 pg (27.0-33.0) 04/10/19 07:03 MCHC 32.3 g/dL (32.0-36.0) 04/10/19 07:03 RDW 13.4 % (11.7-14.6) 04/10/19 07:03 Plt Count 252 x1000/uL (130-400) 04/10/19 07:03 MPV 10.3 fL (8.0-11.0) 04/10/19 07:03 Immature Gran % 0.4 04/10/19 07:03 47.9 04/10/19 07:03 40.2 04/10/19 07:03 10.6 04/10/19 07:03 0.7 04/10/19 07:03 0.2 04/10/19 07:03 Absolute Neutrophils 4.36 k/cumm (1.2-6.7) 04/10/19 07:03 Absolute Lymphocytes 3.66 k/cumm (1.2-3.4) H 04/10/19 07:03 Absolute Monocytes 0.97 k/cumm (0.11-0.7) H 04/10/19 07:03 Absolute Eosinophils 0.06 k/cumm (0.0-0.7) 04/10/19 07:03 Absolute Basophils 0.02 k/cumm (0.0-0.2) 04/10/19 07:03 Sodium 142 mmol/L (136-145) 04/10/19 07:03 Potassium 3.3 mmol/L (3.5-5.1) L 04/10/19 07:03 Chloride 105 mmol/L (98-107) 04/10/19 07:03 Carbon Dioxide 25.8 mmol/L (21.0-32.0) 04/10/19 07:03 11.2 mmol/L (3-11) H 04/10/19 07:03 BUN 9 mg/dL (7-18) D 04/10/19 07:03 0.95 mg/dL (0.55-1.02) 04/10/19 07:03 59.61 (mL/min/1.73m2) 04/10/19 07:03 Glucose 83 mg/dL (70-100) 04/10/19 07:03 Calcium 7.9 mg/dL (8.5-10.1) L 04/10/19 07:03 0.8 mg/dL (0.2-1.0) 04/10/19 07:03 AST 11 U/L (15-37) L 04/10/19 07:03 ALT 17 U/L (12-78) 04/10/19 07:03 77 U/L (46-116) 04/10/19 07:03 < 0.05 ng/mL (0.00-0.06) 04/09/19 09:10 6.5 g/dL (6.4-8.2) 04/10/19 07:03 3.1 g/dL (3.4-5.0) L 04/10/19 07:03 Amylase 43 U/L (25-115) 04/10/19 07:03 63 U/L (73-393) L 04/10/19 07:03 Yellow (Yellow) 04/09/19 12:23 Clear (Clear) 04/09/19 12:23 7.0 (5-8) 04/09/19 12:23 Ur Specific [place] 1.010 (1.005-1.025) 04/09/19 12:23 Negative mg/dL (Negative) 04/09/19 12:23 Negative mg/dL (Negative) 04/09/19 12:23 Trace-intact (Negative) H 04/09/19 12:23 Negative (Negative) 04/09/19 12:23 Negative (Negative) 04/09/19 12:23 0.2 EU/dL (Up TO 0.2) 04/09/19 12:23 Ur Leukocyte Esterase Negative (Negative) 04/09/19 12:23 0-2 (0-2) 04/09/19 12:23 Negative HPF (0-5) 04/09/19 12:23 Ur Epithelial Cells Rare HPF (Negative) 04/09/19 12:23 Negative HPF (Negative) 04/09/19 12:23 Negative HPF (Negative) 04/09/19 12:23 Negative LPF (Negative) 04/09/19 12:23 Negative (Negative) 04/09/19 12:23 Ur Culture Indicated? No 04/09/19 12:23 Negative mg/dL (Negative) 04/09/19 12:23
[2019-04-10] MEDS: Prochlorperazine 10 MG/2 ML VIAL 5 MG IVP (19:12)
--- NOTE | 2019-04-10 21:36 | W.PM.DS.N ---
Date of service: 04/11/19 Time of Service: 11:02 DS: Diagnosis Discharge Diagnosis (1) Impacted gallstone of cystic duct: Status: Acute (2) Acute cholecystitis due to biliary calculus: Status: Acute Discharge Plan Disposition Patient Disposition: HOME Condition: Good Discharge Details Chief Complaint: Abd Prob Clinical Impression: Gallstone, Abdominal pain, RUQ Reason For Visit: RUQ PAIN Admit Date/Time: 04/09/19 13:05 Admit Provider: Edel Ken Attending Provider: Edel Ken Primary Care Provider: Ema Perez ED Provider: Farshad Santillan Hospital Course Hospital Course: acute tiesha on chronic tiesha w/ stones. underwent lap tiesha. has some diarrhea- had this prior to hosp. unclear if this is from abx she was on at home or from GB Dx. Will check c. diff prior to d/c. routine postOp cares. doing well Home Meds and New Rx's Prescriptions: New diphenoxylate-atropine 2.5-0.025 mg tablet 1 tab PO QLOOSE PRNQty: 30 RF: 0 tramadol 50 mg tablet 50 mg PO Q4H PRN PRNQty: 15 RF: 0 ibuprofen 600 mg tablet 600 mg PO QID PRN (Reason: pain) Qty: 60 RF: 4 Continued levothyroxine 88 MCG tablet 75 mcg PO DAILY RF: 0 acetaminophen [Mapap Extra Strength] 500 MG tablet 1,000 mg PRN PRNRF: 0 albuterol sulfate 90 mcg/actuation Hfa Aerosol Inhaler 2 puff INHALATION PRN PRNRF: 0 Discontinued azithromycin 250 MG tablet 250 mg PO DIRECTED Qty: 6 RF: 0 prednisone 20 mg Tablet 40 mg PO DAILY RF: 0 Discharge Instructions Instructions: Laparoscopic Cholecystectomy (DC) Additional Instructions: Care after Gallbladder Surgery -You should walk frequently, gradually, increasing the distance. You may climb stairs, just go slowly. -You can take Advil 400mg 3 times a day with food for the first week for pain; you may take your prescription medication as prescribed-in addition to the Advil. Discontinue Advil if it hurts your stomach. Do not take Advil if you are intolerant to aspirin products or have stomach problems. ? Use an ice bag for the first 72 hours. This helps to decrease swelling, which causes pain. It is normal to be more sore/painful and swollen towards the end of the day and first thing in the morning. ? Gallbladder surgery can make you very nauseated; use zofran for nausea, for the first 24 hours. The nausea generally stops after 24 hours. ? Use milk of magnesia or prune juice to prevent constipation (this is a particular side effect of pain medication). Do not allow yourself to become constipated. ? Avoid fatty or greasy foods; introduce these slowly, with care, after about 1 month. Follow the low-fat diet sheet that will be given to you at the office or hospital. ? Start out eating very small, bland amounts of food. Do not take pain pills on an empty stomach. - You can remove the band-aids and take a shower 24 hours after surgery. ? Do not go swimming or sit in a hot tube for two weeks. ? Replace the band-aids with clean, dry ones or leave them off. ? There are no stitches to remove. ? Do not drive your car for one week and then only if you have no pain and can move freely. Do not drive if you are taking pain narcotic pain medications. ? You may resume sexual activity whenever pain and soreness subside in 2 weeks. ? Do no lift anything over 5 lbs for the first 10 days. Minimize strenuous activity for the next two weeks. ? You may return to work in one week, or when you feel up to it. ? You should return to Dr. Ken?s office for a post-op appointment about one week after surgery. Please call the Surgical [facility] at to schedule an appointment. My Medications for pain and nausea are:ultram/ibuprofen When to Call the Office: ? If the incision becomes red or swollen, or there is more than a little drainage from it. ? If you develop a temperature higher than 100.5 F. ? If your eyes turn yellow ? Vomiting and can?t keep fluids down ? If you have any questions. GO TO THE EMERGENCY ROOM or CALL 911 for any chest pain or other medical emergency! This includes fainting, dizziness, or severe pain in the abdomen. Also, if you are unable to reach the office, you can always visit the emergency room for the more urgent things, and the surgeon contact center director can be contacted. Stand Alone Forms: Nursing Discharge Form Referrals: Martha Barraza PA [PHYSICIANS REELING OPERATOR] - 04/18/19 9:45 am Activity:: see above Equipment/Supplies:: No Equipment Needed Diet:: low fat Discharge Orders Discharge Orders: Discharge Order (Routine); Ordered 04/11/19 Ordered By: Edel Ken Discharge Data Discharge Date/Time-TO BE ENTERED AT DEPARTURE: 04/11/19 12:00 DS: Data Vitals/I&O Vitals and I&O: Vital Signs Temperature 36.4 C L 04/10/19 20:05 Temperature Source Tympanic 04/10/19 20:05 Pulse 62 04/10/19 20:05 Pulse Rhythm Regular 04/10/19 20:40 Pulse 76 04/09/19 08:47 Respiratory Rate 17 04/10/19 20:05 Respiratory Effort Non-Labored 04/10/19 20:40 Respiratory Depth Normal 04/10/19 20:40 Respiratory Pattern Normal 04/10/19 20:40 Blood Pressure 147/77 H 04/10/19 20:05 Blood Pressure Mean 89 04/09/19 13:31 Pulse Oximetry 99 04/10/19 20:05 Respiratory End-tidal CO2 22 04/10/19 11:55 Oxygen Delivery Method Room Air 04/10/19 20:05 Oxygen Flow Rate 0 04/10/19 20:05 Pain Level 0 04/10/19 11:55 Intake & Output 04/09/19 04/10/19 04/10/19 23:59 11:59 23:59 Intake Total 2220 / 2220 2950 / 5400 2450 / 5400 Output Total 300 / 1700 1400 / 1700 Balance 2220 / 2220 2650 / 3700 1050 / 3700 Weight 77.111 kg 77.111 kg Intake: IV 1500 / 1500 2950 / 5160 2210 / 5160 Oral 720 / 720 240 / 240 Output: Urine 300 / 1700 1400 / 1700 Other: Urine Color Yellow Pale Yellow Urine Appearance Clear Clear Clear Urine Odor Normal Normal Normal Comment Voiding ad caty; mixed with diarrheal stool multiple times. Voiding multiple times in toilet; mixed with diarrhea. Three voids post surgery; on bedpan. Third void with hematuria; d/t catheter insertion in OR possibly. RN will continue to monitor. Stool Size Moderate Moderate Small Stool Characteristics Liquid Liquid Soft Brown Brown Liquid Emesis Description None Voiding Methods Toilet Toilet Bedpan Labs on day of discharge: Labs from last 24 hours 04/10/19 04/10/19 07:03 07:03 WBC 9.11 RBC 4.18 Hgb 12.7 Hct 39.3 MCV 94.0 MCH 30.4 MCHC 32.3 RDW 13.4 Plt Count 252 MPV 10.3 Immature Gran % 0.4 Neutrophils % 47.9 Lymphocytes % 40.2 Monocytes % 10.6 Eosinophils % 0.7 Basophils % 0.2 Absolute Neutrophils 4.36 Absolute Lymphocytes 3.66 H Absolute Monocytes 0.97 H Absolute Eosinophils 0.06 Absolute Basophils 0.02 Sodium 142 Potassium 3.3 L Chloride 105 Carbon Dioxide 25.8 Anion Gap 11.2 H BUN 9 D Creatinine 0.95 Estimated GFR/1.73 m2 59.61 Glucose 83 Calcium 7.9 L Total Bilirubin 0.8 AST 11 L ALT 17 Alkaline Phosphatase 77 Total Protein 6.5 Albumin 3.1 L Amylase 43 Lipase 63 L [facility] Medical History (Updated 04/10/19 @ 16:20 by Edel Ken DO) Acute cholecystitis due to biliary calculus (Acute) Social History Smoking/Tobacco Use Status: Former Tobacco Use Alcohol Intake: never Drug use: Never Substance use type: does not use Do you feel safe at home: Yes
[2019-04-11] MEDS: PIPERACILLIN/TAZO 4.5 GM in Normal Saline 100 ML IVPB ×2 (02:14→08:10)
[2019-04-11 04:00] VITALS: BP 155/72; PULSE 59; RESP 16; TEMP 36.6; O2SAT 97
[2019-04-11] MEDS: Normal Saline 1,000 ML 150 ML IV (04:16)
[2019-04-11] MEDS: Levothyroxine 75 MCG TAB PO (05:37)
[2019-04-11] MEDS: Ketorolac 15 MG/ML VIAL 30 MG IVP (06:47)
[2019-04-11] MEDS: Normal Saline Flush 10 ML SYR IVP (06:48)
--- NOTE | 2019-04-11 07:54 | W.PM.PROGNOT ---
Documented by User: XIN Ca 04/11/19 07:58 Date of Service Date of service: 04/11/19 Time of Service: 07:54 Assessment and Plan (1) Acute cholecystitis due to biliary calculus: Current visit: Yes Status: Acute POD #2 She is very eager to be d/c today. Advancing diet as tolerated. Encouraged ambulation and sitting up for meals. Pain is currently well controlled. Disposition- D/C home later today if tolerating a regular diet. Subjective Interval history since last seen: I am ready to get home, so that I can move around at my own pace. She reports that she tolerated clear liquids last night. Denies any nausea or vomiting. (+)b Abdominal tenderness. She reports that she has had diarrhea since starting the IV antibiotics. Exam Const General: cooperative and comfortable Orientation: alert and oriented x3 Resp Effort & Inspection: normal respiratory effort, normal respiratory pattern and no audible wheezes GI Inspection: normal to inspection and distended Palpation: soft, no guarding and tender in the RUQ Auscultation: normal bowel sounds Objective Objective Clinical Data: Abnormal lab results 04/10/19 Range/Units 07:03 Potassium 3.3 L (3.5-5.1) mmol/L Anion Gap 11.2 H (3-11) mmol/L Calcium 7.9 L (8.5-10.1) mg/dL AST 11 L (15-37) U/L Albumin 3.1 L (3.4-5.0) g/dL Lipase 63 L (73-393) U/L Vital Signs Temperature 36.6 C 04/11/19 04:00 Temperature Source Tympanic 04/11/19 04:00 Pulse 59 L 04/11/19 04:00 Pulse Rhythm Regular 04/10/19 20:40 Pulse 76 04/09/19 08:47 Respiratory Rate 16 04/11/19 04:00 Respiratory Effort Non-Labored 04/10/19 20:40 Respiratory Depth Normal 04/10/19 20:40 Respiratory Pattern Normal 04/10/19 20:40 Blood Pressure 155/72 H 04/11/19 04:00 Blood Pressure Mean 89 04/09/19 13:31 Pulse Oximetry 97 04/11/19 04:00 Respiratory End-tidal CO2 22 04/10/19 11:55 Oxygen Delivery Method Room Air 04/11/19 04:00 Oxygen Flow Rate 0 04/11/19 04:00 Pain Level 0 04/11/19 07:30 Intake & Output 04/10/19 04/11/19 04/11/19 18:59 06:59 18:59 Intake Total 3250 / 5360 2110 / 5360 Output Total 1700 / 2500 800 / 2500 Balance 1550 / 2860 1310 / 2860 Intake: IV 3010 / 5120 2110 / 5120 Oral 240 / 240 Output: Urine 1700 / 2500 800 / 2500 Other: Urine Color Yellow Yellow Urine Appearance Clear Clear Urine Odor Normal Normal Comment Three voids post surgery; on bedpan. Third void with hematuria; d/t catheter insertion in OR possibly. RN will continue to monitor. Stool Size Small Stool Characteristics Soft Liquid Emesis Description None Voiding Methods Bedpan Toilet Laboratory Results WBC 9.11 k/cumm (4.4-10.8) 04/10/19 07:03 RBC 4.18 m/cumm (4.00-5.20) 04/10/19 07:03 Hgb 12.7 g/dL (12.0-15.5) 04/10/19 07:03 Hct 39.3 % (36.0-46.0) 04/10/19 07:03 MCV 94.0 fL (80-95) 04/10/19 07:03 MCH 30.4 pg (27.0-33.0) 04/10/19 07:03 MCHC 32.3 g/dL (32.0-36.0) 04/10/19 07:03 RDW 13.4 % (11.7-14.6) 04/10/19 07:03 Plt Count 252 x1000/uL (130-400) 04/10/19 07:03 MPV 10.3 fL (8.0-11.0) 04/10/19 07:03 Immature Gran % 0.4 04/10/19 07:03 47.9 04/10/19 07:03 40.2 04/10/19 07:03 10.6 04/10/19 07:03 0.7 04/10/19 07:03 0.2 04/10/19 07:03 Absolute Neutrophils 4.36 k/cumm (1.2-6.7) 04/10/19 07:03 Absolute Lymphocytes 3.66 k/cumm (1.2-3.4) H 04/10/19 07:03 Absolute Monocytes 0.97 k/cumm (0.11-0.7) H 04/10/19 07:03 Absolute Eosinophils 0.06 k/cumm (0.0-0.7) 04/10/19 07:03 Absolute Basophils 0.02 k/cumm (0.0-0.2) 04/10/19 07:03 Sodium 142 mmol/L (136-145) 04/10/19 07:03 Potassium 3.3 mmol/L (3.5-5.1) L 04/10/19 07:03 Chloride 105 mmol/L (98-107) 04/10/19 07:03 Carbon Dioxide 25.8 mmol/L (21.0-32.0) 04/10/19 07:03 11.2 mmol/L (3-11) H 04/10/19 07:03 BUN 9 mg/dL (7-18) D 04/10/19 07:03 0.95 mg/dL (0.55-1.02) 04/10/19 07:03 59.61 (mL/min/1.73m2) 04/10/19 07:03 Glucose 83 mg/dL (70-100) 04/10/19 07:03 Calcium 7.9 mg/dL (8.5-10.1) L 04/10/19 07:03 0.8 mg/dL (0.2-1.0) 04/10/19 07:03 AST 11 U/L (15-37) L 04/10/19 07:03 ALT 17 U/L (12-78) 04/10/19 07:03 77 U/L (46-116) 04/10/19 07:03 < 0.05 ng/mL (0.00-0.06) 04/09/19 09:10 6.5 g/dL (6.4-8.2) 04/10/19 07:03 3.1 g/dL (3.4-5.0) L 04/10/19 07:03 Amylase 43 U/L (25-115) 04/10/19 07:03 63 U/L (73-393) L 04/10/19 07:03 Yellow (Yellow) 04/09/19 12:23 Clear (Clear) 04/09/19 12:23 7.0 (5-8) 04/09/19 12:23 Ur Specific [place] 1.010 (1.005-1.025) 04/09/19 12:23 Negative mg/dL (Negative) 04/09/19 12:23 Negative mg/dL (Negative) 04/09/19 12:23 Trace-intact (Negative) H 04/09/19 12:23 Negative (Negative) 04/09/19 12:23 Negative (Negative) 04/09/19 12:23 0.2 EU/dL (Up TO 0.2) 04/09/19 12:23 Ur Leukocyte Esterase Negative (Negative) 04/09/19 12:23 0-2 (0-2) 04/09/19 12:23 Negative HPF (0-5) 04/09/19 12:23 Ur Epithelial Cells Rare HPF (Negative) 04/09/19 12:23 Negative HPF (Negative) 04/09/19 12:23 Negative HPF (Negative) 04/09/19 12:23 Negative LPF (Negative) 04/09/19 12:23 Negative (Negative) 04/09/19 12:23 Ur Culture Indicated? No 04/09/19 12:23 Negative mg/dL (Negative) 04/09/19 12:23 Documented by User: Edel Ken DO 04/11/19 11:14 Assessment and Plan (1) Acute cholecystitis due to biliary calculus: Current visit: Yes Status: Acute pt seen and examined agree w/ above pt had diarrhea prior to coming into hosp. She did do a Zpack the last 4 days for bronchitis. It seems worse today. Will check C. diff prior to d/c. pt states it is just water/but no blood. reviewed findings in surgery. d/w postOp cares and restrictions f/u in office next week. see d/c order
[2019-04-11 08:10] VITALS: BP 168/91; PULSE 60; RESP 20; TEMP 36.1; O2SAT 96
--- NOTE | 2019-04-11 13:50 | PDOC.CMDIS ---
- If Service Date Differs Date of service: 04/11/19 Time of Service: 13:51 LACE Index Scoring Tool - Questions: Length of Stay (in days): 2 Acuity (Admit via E.D.?): Yes E.D. Visits: 1 - Answers: Total Score: 6 Risk of Readmission: Low Risk Care Management Discharge Reason for Hospitalization: RUQ Pain Discharge Plan: Ginny will be discharged home with no new services. She will follow up with her surgeon, PCP and discharge plan of care. She will trasport via private vehicle with family. Patient/Family Education Needs: Discharge plan, limitations, follow up plan and Ask Me Three.
== END 2019-04-11 12:00 | disposition home or self-care (01) | DRG 419 ==
LOC: ER 09:41 → MS 13:59
PROVIDERS: Admitting Provider Surgery; Emergency Provider Student in an Organized Health Care Education/Training Program; PCP Nurse Practitioner Family; Visit Provider Surgery
PROC: 0FT44ZZ Resection of Gallbladder, Percutaneous Endoscopic Approach (ICD-10-PCS; CPT 47562; principal; 2019-04-10 09:10)
DX: K80.62 Calculus of gallbladder and bile duct with acute cholecystitis without obstruction (principal)
CPT/HCPCS: 47562; 36415; 80053; 83690; 93005; 96374; 96375; 99222; 99232; 99239; 99285; NC; 71046; 74019; 74177; 81003; 81015; 82150; 84484; 85025; 87324; 88304; 93010; J0131; J0780; J1720; J1885; J2060; J2250; J2405; J2543; J3490; Q9967

== ENCOUNTER 2020-05-10 11:21 | Outpatient (REF) | payer SELFPAY | END 2020-05-10 11:41 | LOC: NCHCN 11:21 | PROVIDERS: PCP Nurse Practitioner Family; Visit Provider Nurse Practitioner Family | DX: E03.9 Hypothyroidism, unspecified (principal) | CPT/HCPCS: 84443 ==

== ENCOUNTER 2021-02-20 17:11 | Outpatient (REF) | payer SELFPAY ==
[2021-02-20 21:57] LABS: TSH (W/Ref FT4) 0.65 uIU/mL (0.36-3.74)
== END 2021-02-20 17:12 | disposition home or self-care (01) ==
LOC: NCHCN 17:11
PROVIDERS: PCP Nurse Practitioner Family
DX: E03.9 Hypothyroidism, unspecified (principal)
CPT/HCPCS: 84443

== ENCOUNTER 2021-06-24 16:28 | Outpatient (REF) | payer MEDICARE, SELFPAY ==
[2021-06-26 14:32] LABS: COVID-19 RT-PCR UVMMC Result Negative (Negative)
== END 2021-06-24 16:29 | disposition home or self-care (01) ==
LOC: LBN 16:28
PROVIDERS: PCP Nurse Practitioner Family; Visit Provider Physician Assistant Medical
DX: Z20.822 Contact with and (suspected) exposure to COVID-19 (principal); J06.9 Acute upper respiratory infection, unspecified
CPT/HCPCS: U0003

== ENCOUNTER 2021-08-28 05:31 | Emergency (ER) | payer MEDICARE, SELFPAY ==
[2021-08-28 05:35] VITALS: PULSE 111; RESP 18; TEMP 36.5; O2SAT 93
[2021-08-28 05:40] VITALS: BP 171/87
--- NOTE | 2021-08-28 05:45 | DI.RAD_ITS ---
Exam(s) XR FEMUR LT EXAM: XR FEMUR LT CLINICAL HISTORY: left hip pain, assess hardware, r/o fx. TECHNIQUE: 2D digital imaging was performed. COMPARISON: No exams were available for comparison FINDINGS: There is a long intramedullary roxie across a healed fracture site at the midshaft of the left femur. The superior aspect of the roxie extends above the greater trochanter, unchanged from prior studies. T he distal most aspect of the roxie is at the condylar level. There are advanced degenerative changes i n the left knee joint including advanced medial compartment joint narrowing, degenerative subarticula r cysts and large areas of degenerative lucency in the subarticular regions on both sides of the knee joint. There is, however, no radiographic evidence of osteomyelitis. IMPRESSION: DATA REPOSITORY: RADIATION DOSE DELIVERED:
--- NOTE | 2021-08-28 05:45 | DI.RAD_ITS ---
Exam(s) XR HIP LT COMPLETE AP PELVIS EXAM: XR HIP LT COMPLETE AP PELVIS CLINICAL HISTORY: h/o femur surgery, assess hardware, r/o fx. TECHNIQUE: 2D digital imaging was performed. COMPARISON: CR LEFT HIP COMPLETE from 02/13/[address] ABDOMEN PELVIS W from 04/09/2019 FINDINGS: There is no evidence of acute pelvic nor hip fracture. Long intramedullary roxie noted in the left fem ur again noted to be having is proximal aspect projecting above the greater trochanter, unchanged fro m previous studies. No obvious degenerative changes in the right hip. Narrowing of the left hip joint is noted. IMPRESSION: No acute fractures. DATA REPOSITORY: RADIATION DOSE DELIVERED:
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
[2021-08-28] MEDS: predniSONE 20 MG TAB 60 MG PO (06:01)
[2021-08-28] MEDS: diazePAM 5 MG TAB PO (06:26)
--- NOTE | 2021-08-28 07:42 | DI.VRAD_ITS ---
PROCEDURE INFORMATION: Exam: XR Left Femur Exam date and time: 08/28/2021 5:57 AM Age: 66 years old Clinical indication: Thigh; Prior surgery; Surgery date: 6+ months; Surgery type: Femur roxie; Patient HX: Left hip pain, assess hardware, R/O FX; Additional info: Proximal femur images with hip xray TECHNIQUE: Imaging protocol: XR Left femur. Views: 2 views. COMPARISON: CR XR HIP LT COMPLETE AP PELVIS 08/28/2021 6:11 AM FINDINGS: Bones/joints: Distal left femur grossly intact with chronic deformities of the mid diaphysis and bilateral condylar region. Extensive lucency/osteopenia noted in the distal femur and proximal tibia. Severe degenerative changes in the left knee No acute fracture. The visualized distal femoral roxie is grossly intact without evidence for loosening Soft tissues: Unremarkable. IMPRESSION: No acute findings. Postsurgical changes as described. Osteopenia and severe degenerative changes in the left knee Dictated and Authenticated by: Bj Gunter MD. Ordering:CARLOS Ramsey MD
--- NOTE | 2021-08-28 07:43 | DI.VRAD_ITS ---
PROCEDURE INFORMATION: Exam: XR Left Hip Exam date and time: 08/28/2021 5:57 AM Age: 66 years old Clinical indication: Prior surgery; Surgery date: 6+ months; Surgery type: Femur roxie; Patient HX: Left hip pain, assess hardware, R/O FX TECHNIQUE: Imaging protocol: XR Left hip. Views: 2 or 3 views hip with pelvis when performed. COMPARISON: CT ABDOMEN PELVIS W 04/09/2019 10:13 AM FINDINGS: Bones/joints: Left femoral roxie extending beyond the superior margin of the greater trochanter, grossly stable. No hardware fracture. Chronic deformity in the mid left femur with callus formation No acute fracture. Soft tissues: Unremarkable. IMPRESSION: No acute findings. Grossly stable positioning of the left femoral roxie as described Dictated and Authenticated by: Bj Gunter MD. Ordering:CARLOS Ramsey MD
== END 2021-08-28 06:58 | disposition home or self-care (01) ==
PROVIDERS: Emergency Provider Physician Assistant; PCP Nurse Practitioner Family
DX: M16.12 Unilateral primary osteoarthritis, left hip (principal); M25.562 Pain in left knee; M53.3 Sacrococcygeal disorders, not elsewhere classified; G89.29 Other chronic pain; Z96.9 Presence of functional implant, unspecified
CPT/HCPCS: 73552; 99284; 73502; 99283; J7512

== ENCOUNTER → 2021-09-10 14:46 | Outpatient (BNVA) | payer MEDICARE, SELFPAY | PROVIDERS: PCP Nurse Practitioner Family; Referring Provider Nurse Practitioner Family; Visit Provider Student in an Organized Health Care Education/Training Program | DX: T84.84XA Pain due to internal orthopedic prosthetic devices, implants and grafts, initial encounter (principal); M17.12 Unilateral primary osteoarthritis, left knee | CPT/HCPCS: 99204; 99214 ==

== ENCOUNTER 2021-09-11 09:55 | Outpatient (CLI) | payer MEDICARE, SELFPAY ==
[2021-09-11 12:12] LABS: Source Nasal/Nares
[2021-09-11 15:16] LABS: COVID-19 PCR Negative (Negative)
== END 2021-09-11 09:56 | disposition home or self-care (01) ==
PROVIDERS: PCP Nurse Practitioner Family; Visit Provider Student in an Organized Health Care Education/Training Program
DX: Z20.822 Contact with and (suspected) exposure to COVID-19 (principal)
CPT/HCPCS: 87635

== ENCOUNTER 2021-09-12 11:03 | Day surgery (SDC) | payer MEDICARE, SELFPAY ==
[2021-09-12] VITALS (8 sets, daily range): BP systolic 123–166; BP diastolic 63–87; PULSE 81–94; RESP 12–24; TEMP 36.1–37; O2SAT 94–99; BMI 27.2
--- NOTE | 2021-09-12 06:35 | W.ANESPRE ---
General Info Date of Service Date Performed: 09/12/21 Height: 5 ft 2 in Weight: 67.585 kg Body Mass Index (BMI): 27.2 Surgical Procedure: Operation Date: 09/12/21 12:10 Proposed Procedures Side Surgeon p Hardware Removal Left Femur Left Yossi Levy MD Meds Allergies and Home Medications Allergies Allergy/AdvReac Type Severity Reaction Status Date / Time Opioids - Morphine Analogues AdvReac Mild Nausea/Vomi Unverified 09/12/21 11:16 ting Home Medication Medication Instructions Recorded levothyroxine 75 mcg PO DAILY 12/12/12 acetaminophen [Mapap Extra 1,000 mg PRN PRN 05/05/15 Strength] albuterol sulfate 2 puff INHALATION PRN PRN 04/09/19 ibuprofen 600 mg PO QID PRN #60 tab 04/11/19 Current Visit Medications: Current Medications Generic Name Dose Route Start Last Admin Trade Name Freq PRN Reason Stop Dose Admin Ringer's Solution 1,000 mls @ 100 mls/hr 09/12/21 06:00 IV 10/11/21 23:59 INFUSION NOAH Cefazolin Sodium/Dextrose 2 gm in 50 mls @ 100 mls/hr 09/12/21 06:00 Ancef Duplex IVPB 09/12/21 16:00 PREOP NOAH IV Miscellaneous Supplies 1 each 09/12/21 06:00 Iv Access IV 10/11/21 23:59 DIRECTED NOAH Sodium Chloride 0 ml 09/12/21 06:00 Normal Saline Flush 10 Ml Syr IV 10/11/21 23:59 PRN PRN Sodium Chloride 0 ml 09/12/21 06:00 Normal Saline 10 Ml Vial IJ 10/11/21 23:59 DIRECTED PRN Sterile Water 0 ml 09/12/21 06:00 Water,Injection,Sterile 10 Ml Vial IJ 10/11/21 23:59 DIRECTED PRN PFSH Active Problems Active Problems: Problem Status Onset Code Pain of right heel M79.671 Impacted gallstone of cystic duct K80.20 Acute cholecystitis due to biliary calculus K80.00 Chronic hip pain M25.559, G89.29 Chronic leg pain M79.606, G89.29 Painful orthopaedic hardware T84.84XA Arthritis of knee, left M17.12 Medical History Medical History COPD (chronic obstructive pulmonary disease) Hypothyroidism Surgical History Surgical History (Updated 09/12/21 @ 11:14 by Nohemi Hilton RN) H/O bone graft H/O tubal ligation History of tonsillectomy and adenoidectomy Hx laparoscopic cholecystectomy Status post open reduction with internal fixation of fracture IM nail left leg Tobacco Smoking/Tobacco Use Status: Current every day Tobacco Type: cigarettes Alcohol Alcohol Intake: never Substance Use Substance use: Never Substance use type: does not use Vital Signs and Lab Results Vital Signs Most Recent Vital Signs in EMR: Temp Pulse Resp BP Pulse Ox 36.8 C 84 18 163/77 H 99 09/12/21 11:19 09/12/21 11:19 09/12/21 11:19 09/12/21 11:19 09/12/21 11:19 Lab Results Blood Type / Crossmatch: No Data to Display Complete Blood Count: No Data to Display Complete Metabolic Panel: No Data to Display Liver Function Panel: No Data to Display Coagulation Panel: No Data to Display Cardiac Panel: No Data to Display Arterial Blood Gas: No Data to Display Venous Blood Gas: No Data to Display Pancreas Panel: No Data to Display Thyroid Panel: No Data to Display Infectious Disease: Coronavirus (COVID-19)(PCR) Negative (Negative) 09/11/21 10:35 09/11/21 Coronavirus 2019 Source Nasal/Nares 09/11/21 10:35 09/11/21 Blood Cultures: No Data to Display Toxicology Panel: No Data to Display Anesthesia Assessment and Plan Anesthesia History Personal History: No History of Anesthesia Complications Family History: No Family History of Anesthesia Complications Exercise Tolerance Exercise Tolerance: Metabolic Equivalents>4 Cardiac & Pulmonary Exam Cardiac Exam: Normal S1/S2 Heart Sounds Pulmonary Exam: Clear Bilateral Breath Sounds Implantable Cardiac Device Does patient have a Pacemaker or an ICD?: No Airway Exam Known Difficult Airway: No Mallampati Class: 2 Mouth Opening: Normal (> 3cm) Thyromental Distance: Less than 3 cm Neck Range of Motion: Limited ROM Neck Circumference: Normal Teeth Condition: Removable Dentures/Plates Lower ASA Classification ASA Score: ASA 2 Emergency Case?: No NPO Status NPO Status: NPO Clears >2 hours, Solids >8 hours Anesthesia Plan Resuscitation Status: Full Code Anesthesia Technique: General Anesthesia Airway Planned: Endotracheal Tube Monitors Used: Standard Monitors Preoperative Comments:: 66 yo female for removal of painful femoral nail. sig PMHx: copd (albut), hypothyroid (on replacment). Previous anes: cristin 3 grade 1, no masking. not interested in spinal. discussed importance of removing dentures, she will try to. I did state that they can be broken if they are not removed, and she expresses understanding.
--- NOTE | 2021-09-12 10:45 | DI.RAD_ITS ---
Exam(s) XR FEMUR LT EXAM: XR FEMUR LT CLINICAL HISTORY: hardware removal left femoral nail. TECHNIQUE: 2D and realtime digital imaging was performed. COMPARISON: CR,XR XR FEMUR LT from 08/28/2021 FINDINGS: Fluoroscopy was provided for Dr. Levy. Hard copy images show removal of a previously noted intramed ullary roxie from the left femur. Deformity of the distal shaft related to old fracture and severe deg enerative changes of the knee are noted. The bones appear osteoporotic. Please see procedure note for details. Fluoro time 38.7 seconds RADIATION DOSE DELIVERED: roro Avila=4.15 mGy
[2021-09-12] MEDS: Lactated Ringers 1,000 ML 100 ML IV (11:52)
[2021-09-12] MEDS: ceFAZolin 2 GM/50 ML BAG IVPB (11:55)
--- NOTE | 2021-09-12 13:26 | W.PM.DSUDISC ---
Discharge Plan Disposition Patient Disposition: HOME Condition: Stable Discharge Details Reason For Visit: Left femur painful hardware Attending Provider: Yossi Levy Primary Care Provider: Ema Perez Home Meds and New Rx's Prescriptions: Continued levothyroxine 88 MCG tablet 75 mcg PO DAILY RF: 0 acetaminophen [Mapap Extra Strength] 500 MG tablet 1,000 mg PRN PRNRF: 0 albuterol sulfate 90 mcg/actuation Hfa Aerosol Inhaler 2 puff INHALATION PRN PRNRF: 0 No Action ibuprofen 600 mg tablet 600 mg PO QID PRN (Reason: pain) Qty: 60 RF: 4 Discharge Instructions Additional Instructions: Surgery: Left femur removal of hardware Activity: Weightbearing as tolerated. May use walker if needed for stability and comfort. Prescriptions: No narcotics prescribed per patient preference You may use [id number] Motrin (ibuprofen) and/or Tylenol (acetaminophen) as needed for pain. Dressings: Leave dressing in place for 5 days. May then remove and leave open to air or cover incision with Band-Aid. May shower after 7 days. Follow-up: 10-[address] Levy Let us know right away if you develop any redness, drainage, fevers, chest pain, or trouble breathing. Do not drink alcohol or drive for at least 24 hours after anesthesia. Please call the office during business hours with any questions or concerns. DS: Diagnosis Discharge Diagnosis (1) Painful orthopaedic hardware: Status: Acute
--- NOTE | 2021-09-12 13:47 | W.PM.OP ---
Date of service: 09/12/21 Time of Service: 11:57 Operative Note Operative Note DATE OF PROCEDURE: 09/12/21 PRE-OP DIAGNOSIS: Left femur painful hardware: Intramedullary nail POST-OP DIAGNOSIS: same PROCEDURE: Left femur removal of hardware: intramedullary nail, CPT# 16434 SURGEON: Yossi Levy CONTROL OFFICER: Edel Peralta ANESTHESIA TYPE: Local By Surgeon and General LMA/ETT Refer to Anesthesia Record ESTIMATED BLOOD LOSS: 5 COMPLICATIONS: None Patient was transported to: PACU Patient's condition: stable Indications: Please see complete medical record for details. Procedure Description: In the operating room, general anesthesia was induced. The patient was positioned sloppy lateral on the operating room table. All bony prominences were well-padded. Preoperative antibiotics were administered. The left knee, thigh, and hip were prepped and draped in the usual sterile fashion. The correct patient, procedure, and side of the procedure were all verified prior to incision. The 40-year-old incision was located far posterior on the buttocks. Instead a more usual piriformis approach was localized proximal to the hip under fluoroscopic guidance with the lower extremity brought across the body in the pseudo lateral position. Superficial and deep tissues were infiltrated with 20cc 0.5% bupivacaine containing epinephrine. Sharp dissection was used to open a small incision followed by finger dissection bluntly down to the palpable tip of the prominent intramedullary device. The skin incision was extended slightly proximally and distally to allow for instrument and retractor placement deeply in the wound. The tip of the nail was cleaned of soft tissues using a rongeur and around the greater trochanter carefully with osteotomes. A vice professor of engineering was securely applied to the threaded exposed end of the nail and rotation attempted to loosen the nail, but instead was rotating the entire femur. The programs assistant maintained lower extremity position while the vice professor of engineering back slap or attachment was connected and then gently used to attempt backslapping which after a few light blows started mobilizing the nail out the femur. Hip and thigh were maintained in appropriate position to allow for straight directed trajectory exit of the nail out the bone and the incision. A vice professor of engineering and backslapping were used to slowly and steadily withdraw the intramedullary roxie completely. Both ends were inspected and it was intact. It was a straight, solid, square-zulma shaped nail with threads on both ends. The wound was inspected there was no metallic or bony debris. The wound was copiously irrigated with normal saline. Hip, thigh, knee fluoroscopy confirmed no fracture. Deep tissue was closed with 0 Vicryl. Subcutaneous tissue was closed using 2-0 Monocryl. Skin closed using 3-0 Monocryl in a buried running fashion. Skin glue applied over incision followed by Mepilex bandage. The patient awoke from anesthesia without complication and was transferred to the recovery room in a stable condition.
[2021-09-12] MEDS: Albuterol/Ipratropium 3 ML UPD VIAL UPD (13:49)
--- NOTE | 2021-09-12 14:15 | DI.RAD_ITS ---
Exam(s) XR FEMUR LT EXAM: XR FEMUR LT CLINICAL HISTORY: Postop. TECHNIQUE: 2D digital imaging was performed. COMPARISON: 28 August 2021 FINDINGS: Intramedullary roxie has been removed. No old healed fracture is noted in the mid shaft of the femur. There is severe degenerative changes at the knee, greater medially. Hip joint space is well maintai gilmar. DATA REPOSITORY: RADIATION DOSE DELIVERED:
--- NOTE | 2021-09-12 14:44 | W.ANESPOSTOP ---
Postoperative Evaluation Date, Time and Location Date Performed: 09/12/21 Time Performed: 14:44 Patient Location: Day Surgery Unit Vital Signs Most Recent Imported Vital Signs: Most Recent Vital Signs Temp Pulse Resp BP Pulse Ox 36.2 C L 94 H 15 156/65 H 95 09/12/21 14:20 09/12/21 14:20 09/12/21 14:20 09/12/21 14:20 09/12/21 14:20 Pain Score Most Recent Pain Score: Most Recent Pain Score Pain Level 3 09/12/21 14:20 Assessment Mental Status: Awake (Alert & Oriented to Patient Baseline) Airway and Respiratory Function: Patent airway with normal (patient baseline) respiratory exam Cardiovascular Function: Hemodynamically Stable Hydration Status: Adequately Hydrated Nausea & Vomiting: No Nausea or Vomiting Pain: Pain is tolerable per patient Peripheral Nerve Block: Patient did not receive a nerve block
== END 2021-09-12 15:10 | disposition home or self-care (01) ==
PROVIDERS: PCP Nurse Practitioner Family; Visit Provider Student in an Organized Health Care Education/Training Program
PROC: (CPT 20680; principal; 2021-09-12 12:00)
DX: T84.84XA Pain due to internal orthopedic prosthetic devices, implants and grafts, initial encounter (principal); E03.9 Hypothyroidism, unspecified; J44.9 Chronic obstructive pulmonary disease, unspecified
CPT/HCPCS: 20680; 73552; 76000; J0131; J0690; J1100; J1885; J2001; J2250; J2405; J7620

== ENCOUNTER → 2021-09-25 11:11 | Outpatient (BNVA) | payer MEDICARE, SELFPAY | PROVIDERS: PCP Nurse Practitioner Family; Referring Provider Nurse Practitioner Family; Visit Provider Student in an Organized Health Care Education/Training Program | DX: M17.12 Unilateral primary osteoarthritis, left knee (principal); M76.02 Gluteal tendinitis, left hip; T84.84XS Pain due to internal orthopedic prosthetic devices, implants and grafts, sequela ==

== ENCOUNTER 2021-12-17 10:37 | Emergency (ER) | payer MEDICARE, SELFPAY ==
[2021-12-17] VITALS (14 sets, daily range): BP systolic 103–173; BP diastolic 70–79; PULSE 79–97; RESP 15–28; TEMP 36.6; O2SAT 95–97
--- NOTE | 2021-12-17 10:30 | RT.EKG_ITS ---
APPROVED REPORT Exam: Resting ECG Reason for Exam: chest pain Patient Location: E HR:90 bpm ECG Measurements Heart Rate 90 AXIS VT 154 P 74 QRSd 94 QRS 66 QT 368 T 75 QTc 452 Conclusion Sinus rhythm...normal P axis, V-rate 60- 99 Inferior infarct, old...Q >35mS, II III aVF. Sinus. Normal axis. No STEMI. I have reviewed and interpreted ECG and agree with software generated interpretation.
--- NOTE | 2021-12-17 10:38 | ED.GENADUL_ITS ---
Discharge Plan Disposition Patient Disposition: HOME Condition: Stable Discharge Details Clinical Impression: Chronic chest pain, Episode of shaking Primary Care Provider: Ema Perez ED Provider: Roxy Monteiro Home Meds and New Rx's Prescriptions: Continued levothyroxine 88 MCG tablet 75 mcg PO DAILY 0RF acetaminophen [Mapap Extra Strength] 500 MG tablet 1,000 mg PRN PRN0RF Rx Instructions: 04/09/19 just had IV tylenol in ER albuterol sulfate 90 mcg/actuation Hfa Aerosol Inhaler 2 puff INHALATION PRN PRN0RF ibuprofen 600 mg tablet 600 mg PO QID PRN (Reason: pain) Qty: 60 4RF Rx Instructions: take w/ food. DO NOT take on an empty stomach Discharge Instructions Instructions: Chest Pain (ED), Chronic Pain (ED) Additional Instructions: Your lab work, EKGs and imaging today are reassuring and show no evidence of acute concerning or significant findings. Please call your primary care doctor's office today to schedule a follow-up appointment for reevaluation and for referral for outpatient stress test if your symptoms do not improve or worsen. Return immediately to the emergency department if you develop any worsening or new concerning symptoms. Discharge Data Discharge Date/Time-TO BE ENTERED AT DEPARTURE: 12/17/21 15:00 Discharge Physician: Roxy Monteiro Medical Decision Making 56-year-old female with a history of chronic tobacco smoking, COPD and hypothyroidism presents for intermittent chronic chest pain for the past 3 months, with an episode of left-sided chest pain today after an episode of shaking lasting approximately 2 hours. EKG notes a rate of 90, sinus, no STEMI and nondiagnostic. Her blood pressure was noticeably hypertensive at 173/75. She is now with a slightly low blood pressure at 103/72. She otherwise has normal heart rate and oxygen saturation on room air. She has diminished breath sounds throughout. No lower extremity edema. Differential diagnosis includes dehydration, electrolyte abnormality, PE, ACS. History and presentation does not appear consistent with dissection, cva, seizure. We will place an IV, bolus IV fluids, screening labs, D-dimer, imaging pending dimer result. Labs and imaging reviewed and unremarkable. Normal white blood cell count. Negative troponin. D-dimer negative for age-adjusted cutoff. Chest x-ray negative. Patient had a delta troponin which was negative. Repeat EKG was unremarkable. Reassessed and she remained asymptomatic and feels comfortable going home. Advised to follow up with the primary care doctor for re-evaluation. Usual and customary return precautions given prior to discharge. Medical Records Medical records reviewed: Yes I reviewed the patient's medical records. Imaging Data Radiologic Study: Radiologist's impression: XR CHEST 2V PA ? LATERAL CLINICAL HISTORY: ? chest pain, r/o acute disease. ? TECHNIQUE:? 2D digital imaging was performed. COMPARISON:? CR XR CHEST 2V PA ? LATERAL from 04/09/2019 FINDINGS: 2 views: Heart size is normal.? The mediastinum is not widened. Lungs are clear.? No infiltrates nor pleural effusions. IMPRESSION: No acute pulmonary findings. Lab Data Lab results reviewed: Yes I reviewed the patient's lab results. Labs: Laboratory Tests Range/Units 12/17/21 12/17/21 12/17/21 10:46 10:46 10:46 WBC (4.4-10.8) 10^3/uL 8.95 RBC (3.93-5.22) 10^6/uL 4.69 Hgb (11.2-15.7) g/dL 14.5 Hct (36.0-46.0) % 44.9 MCV (80-95) fL 96 H MCH (27.0-33.0) pg 30.9 MCHC (32.0-36.0) % 32.3 RDW (11.7-14.6) % 12.6 Plt Count (130-400) 10^3/uL 252 MPV (8.0-11.0) fL 10.3 Immature Gran % 0.4 Neutrophils % 58.7 Lymphocytes % 30.1 Monocytes % 8.9 Eosinophils % 1.6 Basophils % 0.3 Nucleated RBC % (0.0-0.3) % 0.0 Absolute Neutrophils (1.2-6.7) 10^3/uL 5.25 Absolute Lymphocytes (1.2-3.4) 10^3/uL 2.69 Absolute Monocytes (0.1-0.8) 10^3/uL 0.80 Absolute Eosinophils (0.0-0.7) 10^3/uL 0.14 Absolute Basophils (0.0-0.2) 10^3/uL 0.03 D-Dimer (<500) ng/mlFEU 515 H Sodium (136-145) mmol/L 139 Potassium (3.5-5.1) mmol/L 3.6 Chloride (98-107) mmol/L 104 Carbon Dioxide (21.0-32.0) mmol/L 28.9 Anion Gap (3-11) mmol/L 6.1 BUN (7-18) mg/dL 9 Creatinine (0.55-1.02) mg/dL 0.8 Estimated GFR/1.73 m2 (mL/min/1.73m2) >= 60.00 Glucose (74-106) mg/dL 96 Calcium (8.5-10.1) mg/dL 9.0 Magnesium (1.8-2.5) mg/dL 2.2 Total Bilirubin (0.2-1.0) mg/dL 0.6 AST (15-37) U/L 17 ALT (14-59) U/L 15 Alkaline Phosphatase (46-116) U/L 108 Troponin I (<or=60) ng/L < 50 Total Protein (6.4-8.2) g/dL 7.4 Albumin (3.4-5.0) g/dL 3.6 Range/Units 12/17/21 13:20 WBC (4.4-10.8) 10^3/uL RBC (3.93-5.22) 10^6/uL Hgb (11.2-15.7) g/dL Hct (36.0-46.0) % MCV (80-95) fL MCH (27.0-33.0) pg MCHC (32.0-36.0) % RDW (11.7-14.6) % Plt Count (130-400) 10^3/uL MPV (8.0-11.0) fL Immature Gran % Neutrophils % Lymphocytes % Monocytes % Eosinophils % Basophils % Nucleated RBC % (0.0-0.3) % Absolute Neutrophils (1.2-6.7) 10^3/uL Absolute Lymphocytes (1.2-3.4) 10^3/uL Absolute Monocytes (0.1-0.8) 10^3/uL Absolute Eosinophils (0.0-0.7) 10^3/uL Absolute Basophils (0.0-0.2) 10^3/uL D-Dimer (<500) ng/mlFEU Sodium (136-145) mmol/L Potassium (3.5-5.1) mmol/L Chloride (98-107) mmol/L Carbon Dioxide (21.0-32.0) mmol/L Anion Gap (3-11) mmol/L BUN (7-18) mg/dL Creatinine (0.55-1.02) mg/dL Estimated GFR/1.73 m2 (mL/min/1.73m2) Glucose (74-106) mg/dL Calcium (8.5-10.1) mg/dL Magnesium (1.8-2.5) mg/dL Total Bilirubin (0.2-1.0) mg/dL AST (15-37) U/L ALT (14-59) U/L Alkaline Phosphatase (46-116) U/L Troponin I (<or=60) ng/L < 50 Total Protein (6.4-8.2) g/dL Albumin (3.4-5.0) g/dL ECG Data Attestation: I personally reviewed and interpreted this ECG (s) as follows: Interpretation: #1 -- rate of 90, sinus, no STEMI. #2 -- rate of 75, sinus, no STEMI. HPI General Mode of arrival: ambulatory . Date/Time Provider Initiated Documentation: 12/17/21 10:37 . Limitations to Documentation: no limitations . Information obtained by: patient . HPI Narrative: Patient is a 66-year-old female with a history of COPD and hypothyroidism who presents to the ED with a complaint of chest pain for the past 3 months and an episode of shaking followed by worsening of her chest pain today. Patient states she has had cramping chest pain under both breast radiating around to her back for the past 3 months usually occurring every other day that usually are worse with activity. Patient states today she was at work going when she developed shaking in her arms and then her entire body and then developed worsening of her chronic chest pain mainly under her left breast with radiation around to her left anterior chest. She states the pain is currently 2/10. She states the pain is usually 7/10 at its worst. She states the shaking episode lasted approximately 2 hours. She has never taken any medication for this pain. She states she has chronic cough and shortness of breath associated with her [place] [employer] but states this has been no worse than usual. She denies any fever, vomiting, diarrhea or other recent illness. She states she was started on lisinopril for her blood pressure 1 month ago. Related Data Home Medications Medication Instructions Recorded Confirmed levothyroxine 88 mcg tablet 75 mcg PO DAILY 12/12/12 12/17/21 acetaminophen 500 mg tablet (Mapap 1,000 mg PRN PRN 05/05/15 12/17/21 Extra Strength) albuterol sulfate 90 mcg/actuation 2 puff INHALATION PRN PRN 04/09/19 12/17/21 aerosol inhaler ibuprofen 600 mg tablet 600 mg PO QID PRN #60 tab 04/11/19 12/17/21 Previous Rx's Medication Instructions Recorded ibuprofen 600 mg tablet 600 mg PO QID PRN #60 tab 04/11/19 Allergies Allergy/AdvReac Type Severity Reaction Status Date / Time Opioids - Morphine Analogues AdvReac Mild Nausea/Vomi Unverified 09/25/21 11:21 ting General Stated Complaint: Chest Pain CHERYL: 4 Review of Systems All systems reviewed & are unremarkable except as noted in HPI and below Constitutional Constitutional: Denies chills, Denies excessive sweating, Denies fatigue, Denies fever(s), Denies weakness and Denies weight loss Eyes Eyes: Reports system reviewed and no additional complaints, except as documented and Denies blurry vision ENT Ears, Nose, Mouth, and Throat: Denies vertigo, Denies dizziness, Denies otalgia, Denies nasal congestion, Denies sore throat and Denies throat swelling Cardiovascular Cardiovascular: Reports chest pain, Denies syncope, Denies rapid heart rate and Denies dyspnea Respiratory Respiratory: Denies chest congestion, Denies cough, Denies pain on inspiration and Denies dyspnea Gastrointestinal Gastrointestinal: Denies abdominal pain, Denies diarrhea and Denies vomiting Genitourinary Genitourinary: Denies hematuria, Denies dysuria and Denies flank pain Musculoskeletal Musculoskeletal: Denies back pain and Denies joint swelling Integumentary/Breasts Skin/Breast: Denies lesions and Denies rash Neurologic Neurologic: Denies behavioral changes, Denies confusion, Denies vertigo, Denies dizziness, Denies syncope, Denies localized weakness and Denies weakness Psychiatric Psychiatric: Denies behavioral changes, Denies confusion and Denies depression Endocrine Endocrine: Denies excessive sweating and Denies fatigue Hematologic/Lymphatic Hematologic/Lymphatic: Denies easy bruising and Denies lymphadenopathy Allergic/Immunologic Allergic/Immunologic: Denies throat swelling PFSH All Active Problems (Updated 12/17/21 @ 14:49 by Roxy Monteiro DO) Chronic chest pain (Acute) Episode of shaking (Acute) Gluteal tendinitis of left buttock (Acute) Pain of right heel (Acute) Impacted gallstone of cystic duct (Acute) Acute cholecystitis due to biliary calculus (Acute) Painful orthopaedic hardware (Acute) Arthritis of knee, left (Acute) Medical History (Updated 12/17/21 @ 14:49 by Roxy Monteiro DO) COPD (chronic obstructive pulmonary disease) Hypothyroidism Surgical History (Updated 09/12/21 @ 11:14 by Nohemi Hilton RN) H/O bone graft H/O tubal ligation History of tonsillectomy and adenoidectomy Hx laparoscopic cholecystectomy Status post open reduction with internal fixation of fracture IM nail left leg Family History (Updated 09/12/21 @ 11:15 by Nohemi Hilton RN) Mother Heart disease Father Heart disease Social History Smoking/Tobacco Use Status: Current every day Tobacco Type: cigarettes Smoking risk assessment performed?: Yes Alcohol Intake: never Drug use: Never Substance use type: does not use Details: current pack a day smoker, has dry wheeze in upper airway Current gender identity: female Do you feel safe at home: Yes Do you feel safe in your relationship?: Yes Exam Const General: cooperative and no acute distress Orientation: alert, awake and oriented x3 HENMT Head: normal to inspection Ears: hearing grossly normal bilaterally, external ears normal and TM's normal bilaterally General nose exam: external nose normal Face and sinus: normal facial exam Mouth: oral mucosae normal Teeth and gingiva: dentition normal Throat: posterior oropharynx normal Eyes General: appearance normal, both eyes and all related structures Eyelids: eyelids normal Pupils: PERRL EOM: EOM intact bilaterally Neck Neck: normal visual inspection Lymphatic: no lymphadenopathy noted Chest Chest: normal inspection of the chest Resp Effort & Inspection: normal respiratory effort and able to speak in complete sentences Auscultation: diminished lung sounds bilaterally throughout Cardio Rate: regular rate Rhythm: regular rhythm GI Inspection: normal to inspection Palpation: soft, not firm, no guarding, no hepatosplenomegaly, no masses and nontender Auscultation: normal bowel sounds Skin General skin exam: no rashes or lesions noted Neuro General: patient alert and patient awake Cognition: normal cognition Speech: speech normal Gait: normal gait Motor: muscle tone normal throughout Sensory Exam: no sensory deficits noted Extrem General: normal to inspection, full ROM, capillary refill normal and no edema Psych Appearance: grossly normal Mental Status: mental status grossly normal Speech and Movement: speech and movement normal Affect: normal affect Thought Process: normal
[2021-12-17 10:52] LABS: Abs Immature Grans 0.04 10^3/uL (0.0-0.06); Absolute Basophil Count 0.03 10^3/uL (0.0-0.2); Absolute Eosinophil Count 0.14 10^3/uL (0.0-0.7); Absolute Lymphocyte Count 2.69 10^3/uL (1.2-3.4); Absolute Neutrophil Count 5.25 10^3/uL (1.2-6.7); Basophils % 0.3; Eosinophils % 1.6; HCT 44.9 % (36.0-46.0); HGB 14.5 g/dL (11.2-15.7); Immature Grans % 0.4; Lymphocytes % 30.1; MCH 30.9 pg (27.0-33.0); MCHC 32.3 % (32.0-36.0); MCV 96 fL (80-95); MPV 10.3 fL (8.0-11.0); Monocytes % 8.9; Neutrophils % 58.7; Platelet Count 252 10^3/uL (130-400); RBC 4.69 10^6/uL (3.93-5.22); RDW 12.6 % (11.7-14.6); RDW-SD 44.8 fL; WBC 8.95 10^3/uL (4.4-10.8)
[2021-12-17 11:09] LABS: ALT 15 U/L (14-59); AST 17 U/L (15-37); Albumin 3.6 g/dL (3.4-5.0); Alkaline Phosphatase 108 U/L (46-116); Anion Gap 6.1 mmol/L (3-11); BUN 9 mg/dL (7-18); Bilirubin, Total 0.6 mg/dL (0.2-1.0); CO2 28.9 mmol/L (21.0-32.0); CREATININE 0.8 mg/dL (0.55-1.02); Chloride 104 mmol/L (98-107); Glucose 96 mg/dL (74-106); Magnesium 2.2 mg/dL (1.8-2.5); Potassium 3.6 mmol/L (3.5-5.1); Sodium 139 mmol/L (136-145); Total Protein 7.4 g/dL (6.4-8.2); Troponin I < 50 ng/L (<or=60)
--- NOTE | 2021-12-17 11:30 | RT.EKG_ITS ---
APPROVED REPORT Exam: Resting ECG Reason for Exam: chest pain Patient Location: E HR:75 bpm ECG Measurements Heart Rate 75 AXIS IA 192 P 75 QRSd 90 QRS 66 QT 394 T 78 QTc 439 Conclusion Sinus rhythm...normal P axis, V-rate 60- 99. Sinus. Normal axis. No STEMI. I have reviewed and interpreted ECG and agree with software generated interpretation.
[2021-12-17] MEDS: Normal Saline 1,000 ML 1000 ML IV (11:42)
--- NOTE | 2021-12-17 11:45 | NUR.NOTE ---
Nursing Note:Patient refused toradol at this time, patient up to bathroom.
[2021-12-17 12:15] LABS: D-Dimer 515 ng/mlFEU (<500)
--- NOTE | 2021-12-17 12:22 | DI.RAD_ITS ---
Exam(s) XR CHEST 2V PA LATERAL EXAM: XR CHEST 2V PA LATERAL CLINICAL HISTORY: chest pain, r/o acute disease. TECHNIQUE: 2D digital imaging was performed. COMPARISON: CR XR CHEST 2V PA LATERAL from 04/09/2019 FINDINGS: 2 views: Heart size is normal. The mediastinum is not widened. Lungs are clear. No infiltrates nor pleural effusions. IMPRESSION: No acute pulmonary findings. DATA REPOSITORY: RADIATION DOSE DELIVERED:
[2021-12-17 13:59] LABS: Troponin I < 50 ng/L (<or=60)
== END 2021-12-17 15:00 | disposition home or self-care (01) ==
PROVIDERS: Emergency Provider Physician Assistant; PCP Nurse Practitioner Family
DX: R07.9 Chest pain, unspecified (principal); G89.29 Other chronic pain; R25.8 Other abnormal involuntary movements
CPT/HCPCS: 36415; 36416; 80053; 82962; 93005; 96361; 99284; 71046; 83735; 84484; 85025; 85379; 93010

== ENCOUNTER 2022-08-12 13:43 | Outpatient (REF) | payer MEDICARE, SELFPAY ==
[2022-08-12 14:29] LABS: HCT 44.7 % (36.0-46.0); HGB 14.5 g/dL (11.2-15.7); MCH 31.2 pg (27.0-33.0); MCHC 32.4 % (32.0-36.0); MCV 96 fL (80-95); MPV 11.2 fL (8.0-11.0); Platelet Count 256 10^3/uL (130-400); RBC 4.65 10^6/uL (3.93-5.22); RDW 12.6 % (11.7-14.6); RDW-SD 45.2 fL; WBC 8.77 10^3/uL (4.4-10.8)
[2022-08-12 15:24] LABS: Anion Gap 5.6 mmol/L (3-11); BUN 14 mg/dL (7-18); CO2 30.4 mmol/L (21.0-32.0); CREATININE 0.8 mg/dL (0.55-1.02); Calcium 9.3 mg/dL (8.5-10.1); Chloride 100 mmol/L (98-107); Estimated GFR 81.21 (mL/min/1.73m2); Glucose 99 mg/dL (74-106); Potassium 4.4 mmol/L (3.5-5.1); Sodium 136 mmol/L (136-145); TSH 1.04 uIU/mL (0.36-3.74)
== END 2022-08-12 13:44 | disposition home or self-care (01) ==
LOC: NCHCN 13:43
PROVIDERS: PCP Nurse Practitioner Family; Visit Provider Family Medicine
DX: E03.9 Hypothyroidism, unspecified (principal); R03.0 Elevated blood-pressure reading, without diagnosis of hypertension; J44.9 Chronic obstructive pulmonary disease, unspecified
CPT/HCPCS: 80048; 85027; 84443

== ENCOUNTER 2022-11-10 12:04 | Outpatient (REF) | payer MEDICARE, SELFPAY ==
[2022-11-10 15:21] LABS: HCT 43.2 % (36.0-46.0); HGB 14.2 g/dL (11.2-15.7); MCH 31.3 pg (27.0-33.0); MCHC 32.9 % (32.0-36.0); MCV 95 fL (80-95); Platelet Count 250 10^3/uL (130-400); RBC 4.54 10^6/uL (3.93-5.22); RDW 12.9 % (11.7-14.6); RDW-SD 45.1 fL; WBC 7.47 10^3/uL (4.4-10.8)
[2022-11-10 16:22] LABS: ALT 30 U/L (14-59); AST 25 U/L (15-37); Albumin 3.8 g/dL (3.4-5.0); Alkaline Phosphatase 91 U/L (46-116); Anion Gap 6.4 mmol/L (3-11); BUN 11 mg/dL (7-18); Bilirubin, Total 0.4 mg/dL (0.2-1.0); CO2 28.6 mmol/L (21.0-32.0); CREATININE 0.8 mg/dL (0.55-1.02); Calcium 9.2 mg/dL (8.5-10.1); Chloride 102 mmol/L (98-107); Estimated GFR 81.21 (mL/min/1.73m2); Glucose 92 mg/dL (74-106); Potassium 4.6 mmol/L (3.5-5.1); Sodium 137 mmol/L (136-145); TSH 1.25 uIU/mL (0.36-3.74); Total Protein 6.9 g/dL (6.4-8.2)
== END 2022-11-10 12:05 | disposition home or self-care (01) ==
LOC: NCHCN 12:04
PROVIDERS: PCP Nurse Practitioner Family; Visit Provider Family Medicine
DX: R73.9 Hyperglycemia, unspecified (principal); H92.03 Otalgia, bilateral; E03.9 Hypothyroidism, unspecified
CPT/HCPCS: 80053; 85027; 84443

== ENCOUNTER 2023-04-26 09:08 | Emergency (ER) | payer MEDICARE, SELFPAY ==
[2023-04-26 09:11] VITALS: BP 147/69; PULSE 89; RESP 18; TEMP 36.5; O2SAT 96
[2023-04-26 09:23] VITALS: RESP 18
--- NOTE | 2023-04-26 09:32 | ED.GENADUL_ITS ---
Discharge Plan Disposition Patient Disposition: Home Discharge Details Clinical Impression: Injury of great toenail Primary Care Provider: Ema Perez ED Provider: Mata Sutton Home Meds and New Rx's Prescriptions: New cephalexin 500 mg tablet 500 mg PO QID 3 Days Qty: 12 0RF Continued levothyroxine 88 MCG tablet 75 mcg PO DAILY acetaminophen [Mapap Extra Strength] 500 MG tablet 1,000 mg PRN PRN Rx Instructions: 04/09/19 just had IV tylenol in ER albuterol sulfate 90 mcg/actuation Hfa Aerosol Inhaler 2 puff INHALATION PRN PRN ibuprofen 600 mg tablet 600 mg PO QID PRN (Reason: pain) Qty: 60 4RF Rx Instructions: take w/ food. DO NOT take on an empty stomach lisinopril 10 mg tablet 10 mg PO DAILY Patient Comments: TAKE ONE TABLET BY MOUTH EVERY DAY Discharge Instructions Instructions: Nail Avulsion (ED) Additional Instructions: Please take antibiotics as prescribed and follow-up with podiatry for reassessment of your toenail injury. If you have any new or significant worsening of symptoms return the emergency department for reassessment otherwise follow-up with podiatry as discussed. You may perform gentle foot soaks and continue to wear your postop shoe. Referrals: Nohemi Chacko DPM [[facility] STAFF PHYSICIAN] - (Please call the office next week for arrangement of follow-up appointment) Discharge Data Discharge Date/Time-TO BE ENTERED AT DEPARTURE: 04/26/23 09:41 Medical Decision Making Patient presenting to the emergency department for chief complaint of right great toe injury. Patient reports 10 days ago she struck her toenail on a [employer] machine and bent the toenail back causing significant amount of bleeding. Had been healing up appropriately but then yesterday struck it again and cause rebleeding. She states significant pain and discomfort and concern for infection. Patient denies any other injury or trauma, fever chills, other joint or nail involvement. Physical exam shows no bony tenderness but there is soft tissue and nailbed tenderness to the distal aspect of the right great toe. There is surrounding erythema with findings to suggest partial distal avulsion of the nail from the nailbed but the proximal aspect as still seem to be seated within the nail matrix. Do not feel that it would be beneficial at this time to remove the nail, will place patient on Keflex for potential of infection given surrounding erythema worsening pain and swelling. Patient placed in postop shoe and will follow up with podiatry for reassessment and reconsideration of nail removal if needed once swelling and erythema have reduced. Patient also was recommended to perform foot soaks. After discussion of diagnosis and plan of care patient has no further needs, questions, or concerns and states clear understanding to return to the emergency department for any worsening symptoms. This documentation was generated using [employer]ation system, please disregard any oddities of phrase or misspellings. HPI General Mode of arrival: ambulatory . Date/Time Provider Initiated Documentation: 04/26/23 09:22 . Limitations to Documentation: no limitations . Information obtained by: patient and RN notes reviewed . History of Present Illness 67 year old F presents to the emergency department with the chief complaint of Right great toenail injury, described as moderate and severe, Quality is described as aching and sharp, and is localized to the lower extremity. Patient reports no radiation. Patient started experiencing this day(s) (10) and it has been constant. No relieving factors improve sympt om(s), No exacerbating factors reported . Patient notes no other symptoms.. Patient did receive the following treatments prior to arrival, none Related Data Home Medications Medication Instructions Recorded Confirmed levothyroxine 88 mcg tablet 75 mcg PO DAILY 12/12/12 04/26/23 acetaminophen 500 mg tablet (Mapap 1,000 mg PRN PRN 05/05/15 04/26/23 Extra Strength) albuterol sulfate 90 mcg/actuation 2 puff inhalation PRN PRN 04/09/19 04/26/23 aerosol inhaler ibuprofen 600 mg tablet 600 mg PO QID PRN pain #60 tabs 04/11/19 04/26/23 cephalexin 500 mg tablet 500 mg PO QID 3 days #12 tabs 04/26/23 lisinopril 10 mg tablet 10 mg PO DAILY 04/26/23 04/26/23 Previous Rx's Medication Instructions Recorded ibuprofen 600 mg tablet 600 mg PO QID PRN pain #60 tabs 04/11/19 cephalexin 500 mg tablet 500 mg PO QID 3 days #12 tabs 04/26/23 Allergies Allergy/AdvReac Type Severity Reaction Status Date / Time Opioids - Morphine Analogues AdvReac Mild Nausea/Vomi Unverified 04/26/23 09:16 ting General Stated Complaint: GenMedical CHERYL: 4 Review of Systems Constitutional Constitutional: Denies chills and Denies fever(s) Musculoskeletal Musculoskeletal: Reports as per HPI, Denies arthralgias, Reports joint swelling, Denies numbness and Denies tingling Integumentary/Breasts Skin/Breast: Reports as per HPI and Reports erythema Neurologic Neurologic: Denies numbness and Denies tingling PFSH All Active Problems Injury of great toenail (Acute) Gluteal tendinitis of left buttock (Acute) Pain of right heel (Acute) Impacted gallstone of cystic duct (Acute) Acute cholecystitis due to biliary calculus (Acute) Painful orthopaedic hardware (Acute) Arthritis of knee, left (Acute) Medical History COPD (chronic obstructive pulmonary disease) Hypothyroidism Surgical History H/O bone graft H/O tubal ligation History of tonsillectomy and adenoidectomy Hx laparoscopic cholecystectomy Status post open reduction with internal fixation of fracture IM nail left leg Family History Mother Heart disease Father Heart disease Social History Smoking/Tobacco Use Status: Current every day Tobacco Type: cigarettes Smoking risk assessment performed?: Yes Alcohol Intake: never Drug use: Never Substance use type: does not use Details: current pack a day smoker, has dry wheeze in upper airway Current gender identity: female Do you feel safe at home: Yes Do you feel safe in your relationship?: Yes Exam Const General: cooperative, no acute distress and not ill appearing Orientation: alert and awake HENMT Mouth: moist mucous membranes Resp Effort & Inspection: normal respiratory effort, able to speak in complete sentences and no respiratory distress Cardio Rate: regular rate Rhythm: regular rhythm Pulses: normal peripheral pulses Skin General skin exam: no rashes or lesions noted Neuro General: patient alert, patient awake, moves all extremities and no focal motor deficits Sensory Exam: no sensory deficits noted Extrem General: normal exam except as noted Right lower extremity: foot Details: normal capillary refill, abnormal to inspection Details: a deformity Location: of the great toe (Partial nail avulsion) and tenderness Location: of the great toe Location: at the distal phalanx and over the nailbed Course Vital Signs Vital signs: Vital Signs Temperature 36.5 C 04/26/23 09:11 Pulse 89 04/26/23 09:11 Respiratory Rate 18 04/26/23 09:11 Blood Pressure 147/69 H 04/26/23 09:11 Pulse Oximetry 96 04/26/23 09:11 Temperature 36.5 C 04/26/23 09:11 Pulse 89 04/26/23 09:11 Respiratory Rate 18 04/26/23 09:23 Respiratory Effort Normal 04/26/23 09:23 Respiratory Depth Normal 04/26/23 09:23 Respiratory Pattern Normal 04/26/23 09:23 Blood Pressure 147/69 H 04/26/23 09:11 Blood Pressure Position Sitting 04/26/23 09:11 Pulse Oximetry 96 04/26/23 09:11 Oxygen Delivery Method Room Air 04/26/23 09:11 Oxygen Flow Rate 0 04/26/23 09:11 Pain Level 5 04/26/23 09:11
--- NOTE | 2023-04-26 09:32 | NUR.NOTE ---
Referral to Podiatry for right great toe injury for next avail. Put the referral in care managements box for follow up assistance.Nursing Note:
[2023-04-26] MEDS: Cephalexin 500 MG CAP PO (09:40)
== END 2023-04-26 09:41 | disposition home or self-care (01) ==
PROVIDERS: Emergency Provider Nurse Practitioner Family; PCP Nurse Practitioner Family
DX: S91.201A Unspecified open wound of right great toe with damage to nail, initial encounter; W22.8XXA Striking against or struck by other objects, initial encounter
CPT/HCPCS: 99283

== ENCOUNTER 2023-08-27 21:59 | Outpatient (REF) | payer MEDICARE, SELFPAY ==
[2023-08-27 22:25] LABS: Abs Immature Grans 0.03 10^3/uL (0.0-0.06); Absolute Basophil Count 0.05 10^3/uL (0.0-0.2); Absolute Eosinophil Count 0.33 10^3/uL (0.0-0.7); Absolute Monocyte Count 0.87 10^3/uL (0.1-0.8); Absolute Neutrophil Count 5.99 10^3/uL (1.2-6.7); Basophils % 0.5; Eosinophils % 3.1; HCT 40.7 % (36.0-46.0); HGB 13.6 g/dL (11.2-15.7); Immature Grans % 0.3; Lymphocytes % 31.9; MCH 31.4 pg (27.0-33.0); MCHC 33.4 % (32.0-36.0); MCV 94 fL (80-95); MPV 11.3 fL (8.0-11.0); Monocytes % 8.2; Platelet Count 251 10^3/uL (130-400); RBC 4.33 10^6/uL (3.93-5.22); RDW 12.9 % (11.7-14.6); RDW-SD 44.8 fL; WBC 10.67 10^3/uL (4.4-10.8)
[2023-08-27 22:50] LABS: Anion Gap 8.1 mmol/L (3-11); BUN 15 mg/dL (7-18); CO2 26.9 mmol/L (21.0-32.0); CREATININE 0.8 mg/dL (0.55-1.02); Calcium 9.4 mg/dL (8.5-10.1); Chloride 102 mmol/L (98-107); Estimated GFR 80.71 (mL/min/1.73m2); Glucose 88 mg/dL (74-106); Potassium 3.9 mmol/L (3.5-5.1); Sodium 137 mmol/L (136-145); TSH 1.16 uIU/mL (0.36-3.74)
== END 2023-08-27 22:00 | disposition home or self-care (01) ==
LOC: NCHCN 21:59
PROVIDERS: PCP Nurse Practitioner Family; Visit Provider Family Medicine
DX: I10 Essential (primary) hypertension (principal); E03.9 Hypothyroidism, unspecified
CPT/HCPCS: 80048; 84443; 85025

== ENCOUNTER 2023-11-21 11:43 | Emergency (ER) | payer MEDICARE, SELFPAY ==
[2023-11-21] VITALS (39 sets, daily range): BP systolic 136–192; BP diastolic 50–169; PULSE 65–110; RESP 5–28; TEMP 36.9; O2SAT 85–98
--- NOTE | 2023-11-21 11:30 | RT.EKG_ITS ---
APPROVED REPORT Exam: Resting ECG Reason for Exam: Chest Pain Patient Location: E HR:100 bpm ECG Measurements Heart Rate 100 AXIS FL 174 P 59 QRSd 97 QRS 64 QT 368 T 65 QTc 475 Conclusion Sinus tachycardia. [address] changes no stemi
--- NOTE | 2023-11-21 11:30 | DI.RAD_ITS ---
Exam(s) XR PORTABLE CHEST AP EXAM: XR PORTABLE CHEST AP CLINICAL HISTORY: CHEST PAIN TECHNIQUE: 2D digital imaging was performed. COMPARISON: CR XR CHEST 2V PA LATERAL from 12/17/2021 FINDINGS: Monitoring leads overlie the chest. LUNGS: Clear. No pleural abnormality seen. HEART: Normal size. AORTA: Normal diameter. BONES: Unremarkable for age. Soft tissues: Unremarkable. IMPRESSION: No acute findings. DATA REPOSITORY: RADIATION DOSE DELIVERED:
[2023-11-21] MEDS: Aspirin 81 MG CHEW 324 MG CH (12:05)
[2023-11-21] MEDS: nitroGLYcerin 0.4 MG TAB SL (12:06)
[2023-11-21] MEDS: Albuterol/Ipratropium 3 ML UPD VIAL UPD (12:08)
[2023-11-21 12:11] LABS: Abs Immature Grans 0.04 10^3/uL (0.0-0.06); Absolute Basophil Count 0.04 10^3/uL (0.0-0.2); Absolute Eosinophil Count 0.15 10^3/uL (0.0-0.7); Absolute Lymphocyte Count 2.61 10^3/uL (1.2-3.4); Absolute Monocyte Count 0.86 10^3/uL (0.1-0.8); Absolute Neutrophil Count 6.19 10^3/uL (1.2-6.7); Basophils % 0.4; Eosinophils % 1.5; HCT 45.9 % (36.0-46.0); HGB 14.8 g/dL (11.2-15.7); Immature Grans % 0.4; Lymphocytes % 26.4; MCHC 32.2 % (32.0-36.0); MCV 96 fL (80-95); MPV 10.5 fL (8.0-11.0); Monocytes % 8.7; Neutrophils % 62.6; Platelet Count 273 10^3/uL (130-400); RBC 4.77 10^6/uL (3.93-5.22); RDW-SD 46.5 fL; WBC 9.89 10^3/uL (4.4-10.8)
--- NOTE | 2023-11-21 12:13 | DI.VRAD_ITS ---
PROCEDURE INFORMATION: Exam: XR Chest Exam date and time: 11/21/2023 12:01 PM Age: 68 years old Clinical indication: Other: Chest pain TECHNIQUE: Imaging protocol: Radiologic exam of the chest. Views: 1 view. COMPARISON: CR XR CHEST 2V PA LATERAL 12/17/2021 1:07 PM FINDINGS: Lungs: Unremarkable. No consolidation. Pleural spaces: Unremarkable. No pleural effusion. No pneumothorax. Heart/Mediastinum: Unremarkable. No cardiomegaly. Bones/joints: Unremarkable. IMPRESSION: No acute findings. Dictated and Authenticated by: Kwasi Rudd MD. Ordering:[facility] Sin Crandall MD
[2023-11-21] MEDS: Metoprolol 5 MG/5 ML VIAL IVP (12:14)
--- NOTE | 2023-11-21 12:15 | RT.EKG_ITS ---
APPROVED REPORT Exam: Resting ECG Reason for Exam: chest pain Patient Location: E HR:76 bpm ECG Measurements Heart Rate 76 AXIS WI 179 P 18 QRSd 87 QRS 64 QT 369 T 71 QTc 416 Conclusion Sinus rhythm normal axis no stemi
[2023-11-21 12:59] LABS: ALT 20 U/L (14-59); AST 16 U/L (15-37); Albumin 3.4 g/dL (3.4-5.0); Alkaline Phosphatase 87 U/L (46-116); Anion Gap 8.5 mmol/L (3-11); BUN 11 mg/dL (7-18); Bilirubin, Total 0.6 mg/dL (0.2-1.0); CO2 25.5 mmol/L (21.0-32.0); CREATININE 0.8 mg/dL (0.55-1.02); Calcium 8.6 mg/dL (8.5-10.1); Chloride 103 mmol/L (98-107); Estimated GFR 80.71 (mL/min/1.73m2); Glucose 113 mg/dL (74-106); NT-proBNP 105 pg/mL (<300); Potassium 3.9 mmol/L (3.5-5.1); Sodium 137 mmol/L (136-145); Total Protein 6.8 g/dL (6.4-8.2); Troponin I < 50 ng/L (< or =60)
--- NOTE | 2023-11-21 14:13 | W.ED.GENAD ---
Discharge Plan Disposition Patient Disposition: Home Condition: Stable Discharge Details Clinical Impression: Chest pain Primary Care Provider: Ema Perez ED Provider: Franca Vogt Home Meds and New Rx's Prescriptions: No Action levothyroxine 88 MCG tablet 75 mcg PO DAILY lisinopril 10 mg tablet 10 mg PO DAILY Patient Comments: TAKE ONE TABLET BY MOUTH EVERY DAY budesonide-formoterol 160-4.5 mcg/actuation HFA aerosol inhaler INHALATION Patient Comments: INHALE TWO PUFFS BY MOUTH TWICE A DAY Discharge Instructions Instructions: Chest Pain (ED) Additional Instructions: Please follow-up with your PCP for reevaluation and outpatient stress testing to further determine cause of your chest pain. Continue your treatments for COPD including bronchodilators. Return to the emergency department if you have persistent return of your chest pain or any other concerning symptoms. HPI General Date/Time Provider Initiated Documentation: 11/21/23 11:44. Limitations to Documentation: no limitations. Information obtained by: patient. HPI Narrative: 68-year-old female with past medical history of hypertension, COPD, tobacco abuse presents for evaluation of chest pain. Patient reports onset of chest pain during an airline flight yesterday. Reports it felt like a muscle spasm. It occurred during a lot of turbulence, so she says that she was very anxious. It lasted less than an hour and resolved spontaneously. She reports this morning she just feels a dull pressure. She reports that her shortness of breath is at baseline. She uses her inhalers as needed. Related Data Home Medications Medication Instructions Recorded Confirmed levothyroxine 88 mcg tablet 75 mcg PO DAILY 12/12/12 11/21/23 lisinopril 10 mg tablet 10 mg PO DAILY 04/26/23 11/21/23 budesonide-formoterol HFA 160 inhalation 11/21/23 mcg-4.5 mcg/actuation aerosol inhaler Allergies Allergy/AdvReac Type Severity Reaction Status Date / Time Opioids - Morphine Analogues AdvReac Mild Nausea/Vomi Unverified 11/21/23 12:44 ting General Stated Complaint: Chest Pain CHERYL: 2 Exam Narrative Exam Narrative: Review of Systems: All systems reviewed & are unremarkable except as noted in HPI and below Well-developed, no acute distress NCAT PERRL, normal conjunctiva RRR Mild tachypnea, no hypoxia, expiratory wheezing Nondistended abdomen Extremities w/o deformity, no cyanosis, no edema No rashes or lesions. no focal neurologic deficits + Anxious Course Vital Signs Vital signs: Vital Signs Temperature 36.9 C 11/21/23 11:45 Pulse 109 H 11/21/23 11:45 Respiratory Rate 20 11/21/23 11:45 Blood Pressure 178/87 H 11/21/23 11:45 Pulse Oximetry 97 11/21/23 11:45 Temperature 36.9 C 11/21/23 11:45 Temperature Source Temporal Artery Scan 11/21/23 11:45 Pulse 67 11/21/23 14:02 Pulse 78 11/21/23 14:02 Respiratory Rate 18 11/21/23 14:02 Respiratory Effort Normal 11/21/23 11:52 Respiratory Depth Normal 11/21/23 11:52 Respiratory Pattern Normal 11/21/23 11:52 Blood Pressure 151/63 H 11/21/23 14:02 Blood Pressure Mean 96 11/21/23 14:02 Blood Pressure Position Supine 11/21/23 11:45 Pulse Oximetry 97 11/21/23 14:02 Oxygen Delivery Method Room Air 11/21/23 12:08 Oxygen Flow Rate 0 11/21/23 12:08 Pain Level 2 11/21/23 12:06 Lab/Test Results Lab/Test Results: Laboratory Tests Range/Units 11/21/23 11/21/23 11:55 12:32 WBC (4.4-10.8) 10^3/uL 9.89 RBC (3.93-5.22) 10^6/uL 4.77 Hgb (11.2-15.7) g/dL 14.8 Hct (36.0-46.0) % 45.9 MCV (80-95) fL 96 H MCH (27.0-33.0) pg 31.0 MCHC (32.0-36.0) % 32.2 RDW (11.7-14.6) % 13.0 Plt Count (130-400) 10^3/uL 273 MPV (8.0-11.0) fL 10.5 Immature Gran % 0.4 Neutrophils % 62.6 Lymphocytes % 26.4 Monocytes % 8.7 Eosinophils % 1.5 Basophils % 0.4 Nucleated RBC % (0.0-0.3) % 0.0 Absolute Neutrophils (1.2-6.7) 10^3/uL 6.19 Absolute Lymphocytes (1.2-3.4) 10^3/uL 2.61 Absolute Monocytes (0.1-0.8) 10^3/uL 0.86 H Absolute Eosinophils (0.0-0.7) 10^3/uL 0.15 Absolute Basophils (0.0-0.2) 10^3/uL 0.04 Sodium Cancelled 137 Potassium Cancelled 3.9 Chloride Cancelled 103 Carbon Dioxide Cancelled 25.5 Anion Gap Cancelled 8.5 BUN Cancelled 11 Creatinine Cancelled 0.8 Est GFR (CKD-EPI 2020) Cancelled 80.71 Glucose Cancelled 113 H Calcium Cancelled 8.6 Total Bilirubin Cancelled 0.6 AST Cancelled 16 ALT Cancelled 20 Alkaline Phosphatase Cancelled 87 Troponin I Cancelled < 50 NT-Pro-B Natriuret Pep Cancelled 105 Total Protein Cancelled 6.8 Albumin Cancelled 3.4 Medical Decision Making Emergent evaluation of chest pain. Patient has multiple risk factors. The initial EKG is without acute ischemic changes. Plan for lab work and serial troponins. Will give a dose of labetalol for hypertension and tachycardia. Will also give a bronchodilator because she is tachypneic and wheezing. Chest pain may be secondary to COPD exacerbation. Lab work including serial troponins is unremarkable. Her vital signs normalized with her medications. She has an unremarkable chest x-ray. At this time there is no further emergent workup or indication for hospitalization. I do recommend that she follow-up with her PCP for outpatient stress testing. Medical Records Medical records reviewed: Yes I reviewed the patient's medical records. Lab Data Lab results reviewed: Yes I reviewed the patient's lab results. Quality:[facility] Health Related Social Needs: No Data to Display [facility] All Active Problems (Updated 11/21/23 @ 15:22 by Franca Vogt MD) Chest pain (Acute) Gluteal tendinitis of left buttock (Acute) Pain of right heel (Acute) Impacted gallstone of cystic duct (Acute) Acute cholecystitis due to biliary calculus (Acute) Painful orthopaedic hardware (Acute) Arthritis of knee, left (Acute) Medical History COPD (chronic obstructive pulmonary disease) Hypothyroidism Surgical History H/O tubal ligation History of tonsillectomy and adenoidectomy H/O bone graft Status post open reduction with internal fixation of fracture IM nail left leg Hx laparoscopic cholecystectomy Family History Mother Heart disease Father Heart disease Social History Smoking/Tobacco Use Status: Current every day Tobacco Type: cigarettes Smoking risk assessment performed?: Yes Alcohol Intake: never Drug use: Never Substance use type: does not use Details: current pack a day smoker, has dry wheeze in upper airway Housing: other Current gender identity: female Do you feel safe at home: Yes Do you feel safe in your relationship?: Yes
[2023-11-21 15:16] LABS: Troponin I < 50 ng/L (< or =60)
== END 2023-11-21 15:40 | disposition home or self-care (01) ==
PROVIDERS: Emergency Provider Emergency Medicine; PCP Nurse Practitioner Family
DX: R07.9 Chest pain, unspecified (principal); R06.02 Shortness of breath; R00.0 Tachycardia, unspecified; I10 Essential (primary) hypertension; J44.9 Chronic obstructive pulmonary disease, unspecified; F17.210 Nicotine dependence, cigarettes, uncomplicated
CPT/HCPCS: 80053; 93005; 94640; 96374; 99285; 71045; 83880; 84484; 85025; 93010; 99284; J7620

== ENCOUNTER 2023-11-23 10:27 | Outpatient (REF) | payer MEDICARE, SELFPAY ==
[2023-11-23 14:50] LABS: Abs Immature Grans 0.05 10^3/uL (0.0-0.06); Absolute Eosinophil Count 0.28 10^3/uL (0.0-0.7); Basophils % 0.5; Eosinophils % 2.5; HCT 44.2 % (36.0-46.0); HGB 14.7 g/dL (11.2-15.7); Immature Grans % 0.5; Lymphocytes % 31.7; MCH 31.7 pg (27.0-33.0); MCHC 33.3 % (32.0-36.0); MCV 95 fL (80-95); MPV 11.1 fL (8.0-11.0); Monocytes % 9.6; Neutrophils % 55.2; Platelet Count 280 10^3/uL (130-400); RBC 4.64 10^6/uL (3.93-5.22); RDW-SD 45.1 fL; WBC 11.09 10^3/uL (4.4-10.8)
[2023-11-23 14:54] LABS: ESR 15 mm/hr (0-30)
[2023-11-23 15:00] LABS: Absolute Basophil Count 0.06 10^3/uL (0.0-0.2); Absolute Lymphocyte Count 3.52 10^3/uL (1.2-3.4); Absolute Monocyte Count 1.06 10^3/uL (0.1-0.8); Absolute Neutrophil Count 6.12 10^3/uL (1.2-6.7)
[2023-11-23 15:18] LABS: Creatine Kinase 108 U/L (26-192); Magnesium 2.1 mg/dL (1.8-2.4)
== END 2023-11-23 10:28 | disposition home or self-care (01) ==
LOC: NCHCN 10:27
PROVIDERS: PCP Nurse Practitioner Family; Visit Provider Family Medicine
DX: M79.18 Myalgia, other site (principal)
CPT/HCPCS: 82550; 85652; 83735; 85025

== ENCOUNTER → 2023-11-30 00:52 | Outpatient (CLI) | payer MEDICARE, SELFPAY ==
--- NOTE | 2023-11-30 | DI.NM_ITS ---
APPROVED REPORT Exam: Exercise Treadmill Patient Location: Out-Patient Room/Bed: Stress Nurse: Yenny Shepard RN Ordering Provider:LORNA CRUZ, Contact Number: [phone] BMI: 28.34 Baseline Rhythm: Sinus Rhythm Indications: chest pain Medical History Medical History: HTN, COPD, Smoker Cardiac Medications: Lisinopril, levothyroxine, budesonide-formoterol Allergies: Opiods, morphine Cardiac Risk Factors: Family Hx, HTN, COPD, Smoker Previous Cardiac Procedures: None Pretest Chest Pain Characteristics: None Exercise History: Sedentary Physical Disabilities: Legs Lung Sounds: Clear to auscultation Heart Sounds: Regular Stress Test Details Test: Pharmacologic stress testing performed using 0.4 mg of regadenoson per 5 mL given IV over 10 s econds. Nuclear Acquisition: Rest Tc-99m/Stress Tc-99m 1 day Rest Isotope: Tc-99m Sestamibi. Dose: 10.9 Date: 11/30/2023 Injection Time: 0840 Stress Isotope: Tc-99m Sestamibi. Dose: 32.5 Date: 11/30/2023 Injection Time: 0950 HR Resting HR Supine: 81 bpm Max Heart Rate (APMHR): 153.134003 bpm Target HR (85% APMHR): 130.664995 bpm Max HR Achieved: 118 bpm % of APMHR: 77.12 Recovery HR: 95 bpm BP Resting BP Supine: 150/78 mmHg Max BP: 154/78 mmHg Recovery BP: 94/72 mmHg ECG Resting ECG: Sinus Rhythm Ectopy: none Stress ECG: Sinus Rhythm, Sinus Tachycardia ST Change: No significant ST segment changes noted Arrhythmia: None Recovery ECG: Sinus Rhythm Recovery ST Change: No significant ST segment changes noted Recovery Arrhythmia: None Clinical Rate Pressure Product: 17243 Stress ECG Conclusion 1. Resting EKG is normal 2. Patient underwent testing using pharmacologic stress with regadenoson 3. Peak heart rate achieved was 77% of predicted for age 4. The electrocardiographic portion of test was nondiagnostic 5. See MPI report Stress Test Summary STAGE HR BP SpO2 Symptoms NOTES Supine 81 150/78 95 1 min post Lexiscan injection 110 108/68 91 SOB 3 min post Lexiscan injection 113 108/68 94 SOB resolved 6 min post Lexiscan injection 95 94/72 92 MPI Conclusion Myocardial perfusion is normal. There is no ischemia or evidence of prior infarction EF 58%, normal wall motion Radiologist Interpretation Radiologist Interpretation by: Deshawn Mcgee MD Interpretation Date/Time: 11/30/2023 16:52:10
[2023-11-30] MEDS: Regadenoson 0.4 MG/5 ML SYR IVP (09:36)
== END ==
PROVIDERS: PCP Nurse Practitioner Family; Visit Provider Family Medicine
DX: R07.9 Chest pain, unspecified (principal)
CPT/HCPCS: 78452; 93016; 93018; 93017; J2785

== ENCOUNTER 2024-03-31 14:55 | Outpatient (REF) | payer MEDICARE, SELFPAY | END 2024-03-31 14:56 | disposition home or self-care (01) | LOC: NCHCN 14:55 | PROVIDERS: PCP Nurse Practitioner Family; Visit Provider Family Medicine | DX: E03.9 Hypothyroidism, unspecified (principal) | CPT/HCPCS: 84443 ==

== ENCOUNTER 2024-07-24 09:16 | Emergency (ER) | payer MEDICARE, SELFPAY ==
[2024-07-24] VITALS (8 sets, daily range): BP systolic 110–165; BP diastolic 70–86; PULSE 84–103; RESP 5–30; TEMP 36.3; O2SAT 94–98
--- NOTE | 2024-07-24 09:15 | RT.EKG_ITS ---
APPROVED REPORT Exam: Resting ECG Reason for Exam: SOB Patient Location: E HR:102 bpm ECG Measurements Heart Rate 102 AXIS UT 158 P 69 QRSd 81 QRS 66 QT 335 T 87 QTc 437 Conclusion Sinus tachycardia...rate> 99
--- NOTE | 2024-07-24 09:24 | ED.GENADUL_ITS ---
Discharge Plan Disposition Patient Disposition: Home Condition: Stable Discharge Details Clinical Impression: Shortness of breath, COPD with acute exacerbation Primary Care Provider: Ema Perez ED Provider: Nacho Stubbs Home Meds and New Rx's Prescriptions: New prednisone 20 mg tablet 60 mg PO DAILY 4 Days Qty: 12 0RF doxycycline hyclate 100 mg tablet 100 mg PO BID Qty: 14 0RF Continued albuterol sulfate 90 mcg/actuation HFA aerosol inhaler 2 puff INHALATION Q6H PRN Patient Comments: INHALE TWO PUFFS BY MOUTH EVERY 4 TO 6 HOURS NEEDED levothyroxine 75 mcg tablet 75 mcg PO DAILY Patient Comments: TAKE 1 TABLET BY MOUTH ONCE DAILY lisinopril 10 mg tablet 10 mg PO DAILY Patient Comments: TAKE ONE TABLET BY MOUTH EVERY DAY budesonide-formoterol 160-4.5 mcg/actuation HFA aerosol inhaler 2 puff INHALATION BID Patient Comments: INHALE TWO PUFFS BY MOUTH TWICE A DAY Discharge Instructions Additional Instructions: If you are not improving this week follow-up with your primary care provider If you feel more ill, have worsening shortness of breath or chest pain return to the emergency department for reevaluation. HPI General Mode of arrival: ambulatory . Date/Time Provider Initiated Documentation: 07/24/24 09:17 . Limitations to Documentation: no limitations . Information obtained by: patient . History of Present Illness 69 year old F presents to the emergency department with the chief complaint of cough, dyspnea, described as moderate, Patient started experiencing this day(s) (5) and it has been constant. Rest improves symptom(s), Movement worsens symptoms . Patient notes cough and shortness of breath; denies chest pain and nausea/vomiting. Patient did receive the following treatments prior to arrival, none Related Data Home Medications ?Medication ?Instructions ?Recorded ?Confirmed lisinopril 10 mg tablet 10 mg PO DAILY 04/26/23 07/24/24 budesonide-formoterol HFA 160 2 puff inhalation BID 11/21/23 07/24/24 mcg-4.5 mcg/actuation aerosol inhaler albuterol sulfate 90 mcg/actuation 2 puff inhalation Q6H PRN 07/24/24 07/24/24 aerosol inhaler doxycycline hyclate 100 mg tablet 100 mg PO BID #14 tabs 07/24/24 levothyroxine 75 mcg tablet 75 mcg PO DAILY 07/24/24 07/24/24 prednisone 20 mg tablet 60 mg (3 x 20 mg) PO DAILY 4 days 07/24/24 #12 tabs Previous Rx's ?Medication ?Instructions ?Recorded doxycycline hyclate 100 mg tablet 100 mg PO BID #14 tabs 07/24/24 prednisone 20 mg tablet 60 mg (3 x 20 mg) PO DAILY 4 days 07/24/24 #12 tabs Allergies Allergy/AdvReac Type Severity Reaction Status Date / Time Opioids - Morphine Analogues AdvReac Mild Nausea/Vomi Unverified 07/24/24 09:23 ting General Stated Complaint: SOB CHERYL: 3 Review of Systems All systems reviewed & are unremarkable except as noted in HPI and below Constitutional Constitutional: Denies chills, Denies fever(s) and Denies weakness Cardiovascular Cardiovascular: Denies chest pain and Reports dyspnea Respiratory Respiratory: Reports cough and Reports dyspnea Gastrointestinal Gastrointestinal: Denies abdominal pain, Denies nausea and Denies vomiting Integumentary/Breasts Skin/Breast: Denies rash Neurologic Neurologic: Denies weakness Exam Const General: no acute distress Orientation: alert [facility] Head: normal to inspection Ears: external ears normal General nose exam: external nose normal Mouth: moist mucous membranes Eyes General: appearance normal, both eyes and all related structures Neck Neck: normal visual inspection Resp Effort & Inspection: normal respiratory effort and able to speak in complete sentences Auscultation: wheezes Cardio Rate: regular rate Skin General skin exam: no rashes or lesions noted Neuro General: patient alert and patient oriented x3 Extrem General: normal to inspection Psych Mental Status: mental status grossly normal Course Vital Signs Vital signs: Vital Signs Pulse 103 H 07/24/24 09:18 Respiratory Rate 30 H 07/24/24 09:18 Blood Pressure 165/79 H 07/24/24 09:18 Pulse Oximetry 96 07/24/24 09:18 Pulse 103 H 07/24/24 09:18 Respiratory Rate 30 H 07/24/24 09:18 Blood Pressure 165/79 H 07/24/24 09:18 Blood Pressure Position Sitting 07/24/24 09:18 Pulse Oximetry 96 07/24/24 09:18 Oxygen Delivery Method Room Air 07/24/24 09:18 Oxygen Flow Rate 0 07/24/24 09:18 Pain Level 0 07/24/24 09:18 Medical Decision Making 69-year-old female with a history of COPD and continues to smoke comes in with 5 days of worsening shortness of breath with exertion along with a productive cough. She denies any chest pain or pressure, no fevers, no chills. She did recently fly from [place] to here. She denies any abdominal pain, diaphoresis, vomiting. She is ambulating with a normal gait on arrival. She is mildly tachycardic on exam. She is able to speak in full sentences, no JVD, no leg swelling or calf tenderness. She does have diffuse wheezing on lung exam. I suspect a COPD exacerbation. I did recommend proceeding with other workup including CBC, CMP, troponins and a CT of the chest to evaluate for entities such as PE, NSTEMI, anemia and electrolyte abnormalities, patient has decision- making capacity and refuses to have any lab work or imaging done. She understands the risks of missing the previous mentioned entities including worsening respiratory status, chance of and also permanent disability and still accepts these risks. She is willing to have prednisone, antibiotics and also a breathing treatment. Given she is at increased cough and COPD I feel doxycycline is reasonable. Will also treat with prednisone and DuoNeb and reassess. Patient feels better and her lung sounds have improved, she only has apical wheezing bilaterally, declines another neb. She still declining any blood work or imaging. I will prescribe her prednisone and doxycycline, she will follow-up with her PCP if not improving and return precautions given Differential Diagnosis Differential Diagnosis: COPD, pneumonia, anemia, NSTEMI, PE Medical Records Medical records reviewed: Yes I reviewed the patient's medical records. ECG Data Attestation: I personally reviewed and interpreted this ECG (s) as follows: Prior ECG tracings: available for review Interpretation: Sinus tachycardia, rate of 102, MD 158, no STEMI Quality:[facility] Health Related Social Needs: No Data to Display [facility] All Active Problems (Updated 07/24/24 @ 10:18 by Nacho Stubbs MD) COPD with acute exacerbation (Acute) Shortness of breath (Acute) Gluteal tendinitis of left buttock (Acute) Pain of right heel (Acute) Impacted gallstone of cystic duct (Acute) Acute cholecystitis due to biliary calculus (Acute) Painful orthopaedic hardware (Acute) Arthritis of knee, left (Acute) Medical History COPD (chronic obstructive pulmonary disease) Hypothyroidism Surgical History H/O tubal ligation History of tonsillectomy and adenoidectomy H/O bone graft Status post open reduction with internal fixation of fracture IM nail left leg Hx laparoscopic cholecystectomy Family History Mother Heart disease Father Heart disease Social History Smoking/Tobacco Use Status: Current every day Tobacco Type: cigarettes Smoking risk assessment performed?: Yes Alcohol Intake: never Drug use: Never Substance use type: does not use Details: current pack a day smoker, has dry wheeze in upper airway Housing: other Current gender identity: female Do you feel safe at home: Yes Do you feel safe in your relationship?: Yes
[2024-07-24] MEDS: Doxycycline Hyclate 100 MG CAP PO (09:56)
[2024-07-24] MEDS: Albuterol/Ipratropium 3 ML UPD VIAL UPD (09:56)
[2024-07-24] MEDS: predniSONE 20 MG TAB 60 MG PO (09:56)
== END 2024-07-24 10:27 | disposition home or self-care (01) ==
PROVIDERS: Emergency Provider Emergency Medicine; PCP Nurse Practitioner Family
DX: J44.1 Chronic obstructive pulmonary disease with (acute) exacerbation (principal); R00.0 Tachycardia, unspecified; F17.210 Nicotine dependence, cigarettes, uncomplicated
CPT/HCPCS: 80053; 82805; 84145; 87637; 93005; 94640; 99283; 83735; 83880; 84443; 84484; 85025; 85610; 85730; 93010; J7512; J7620

== ENCOUNTER 2024-07-25 17:31 | Emergency (ER) | payer MEDICARE, SELFPAY ==
[2024-07-25] VITALS (20 sets, daily range): BP systolic 130–154; BP diastolic 54–115; PULSE 91–106; RESP 19–31; TEMP 36.7; O2SAT 93–100
--- NOTE | 2024-07-25 17:30 | RT.EKG_ITS ---
APPROVED REPORT Exam: Resting ECG Reason for Exam: SOB Patient Location: E HR:101 bpm ECG Measurements Heart Rate 101 AXIS ME 195 P 82 QRSd 87 QRS 84 QT 343 T 90 QTc 444 Conclusion Sinus tachycardia...rate> 99 Normal [place]/Interval No acute ST changes There are no significant changes compared to prior EKG performed on 07/24/2024 at 09:20.
--- NOTE | 2024-07-25 17:52 | W.ED.GENAD ---
Discharge Plan Disposition Patient Disposition: Home Condition: Stable Discharge Details Clinical Impression: COPD exacerbation Primary Care Provider: Ema Perez ED Provider: Farshad Inman Home Meds and New Rx's Prescriptions: Continued albuterol sulfate 90 mcg/actuation HFA aerosol inhaler 2 puff INHALATION Q6H PRN Patient Comments: INHALE TWO PUFFS BY MOUTH EVERY 4 TO 6 HOURS NEEDED levothyroxine 75 mcg tablet 75 mcg PO DAILY Patient Comments: TAKE 1 TABLET BY MOUTH ONCE DAILY prednisone 20 mg tablet 60 mg PO DAILY 4 Days Qty: 12 0RF doxycycline hyclate 100 mg tablet 100 mg PO BID Qty: 14 0RF lisinopril 10 mg tablet 10 mg PO DAILY Patient Comments: TAKE ONE TABLET BY MOUTH EVERY DAY budesonide-formoterol 160-4.5 mcg/actuation HFA aerosol inhaler 2 puff INHALATION BID Patient Comments: INHALE TWO PUFFS BY MOUTH TWICE A DAY Discharge Instructions Instructions: COPD Exacerbation, Adult ED Additional Instructions: You were seen in the emergency department for your COPD exacerbation, you responded well to breathing treatment here, please continue the doxycycline and steroids, there is no focal pneumonia seen on your chest x-ray, please use your at home breathing treatments, do not hesitate to return to the emergency department for severe increasing respiratory distress, chest pain, near syncope or dizziness, fevers. Referrals: Ema Perez [Primary Care Provider] - [facility] General Date/Time Provider Initiated Documentation: 07/25/24 17:35. HPI Narrative: 69 year-old female presents to ED today by POV/ambulating with a chief complaint of shortness of breath, recently arrived back [place] from [place]- notes worsened breathing with the cold dry air, with onset two days ago was seen here last night and started on doxycycline and prednisone after refusing studies. Quality described as generalized cough and shortness of breath, no radiation to severe respiratory distress, hypoxia, near syncope, chest pain, nausea/vomiting, fevers. Severity is described as severe. Palliating factors include nothing specific- has breathing treatment. Provoking factors include nothing specific. Patient not anticoagulated. Related Data Home Medications ?Medication ?Instructions ?Recorded ?Confirmed lisinopril 10 mg tablet 10 mg PO DAILY 04/26/23 07/25/24 budesonide-formoterol HFA 160 2 puff inhalation BID 11/21/23 07/25/24 mcg-4.5 mcg/actuation aerosol inhaler albuterol sulfate 90 mcg/actuation 2 puff inhalation Q6H PRN 07/24/24 07/25/24 aerosol inhaler doxycycline hyclate 100 mg tablet 100 mg PO BID #14 tabs 07/24/24 07/25/24 levothyroxine 75 mcg tablet 75 mcg PO DAILY 07/24/24 07/25/24 prednisone 20 mg tablet 60 mg (3 x 20 mg) PO DAILY 4 days 07/24/24 07/25/24 #12 tabs Previous Rx's ?Medication ?Instructions ?Recorded doxycycline hyclate 100 mg tablet 100 mg PO BID #14 tabs 07/24/24 prednisone 20 mg tablet 60 mg (3 x 20 mg) PO DAILY 4 days 07/24/24 #12 tabs Allergies Allergy/AdvReac Type Severity Reaction Status Date / Time Opioids - Morphine Analogues AdvReac Mild Nausea/Vomi Unverified 07/24/24 09:23 ting General Stated Complaint: SOB CHERYL: 3 Review of Systems All systems reviewed & are unremarkable except as noted in HPI and below Exam Narrative Exam Narrative: GENERAL APPEARANCE: Well-nourished, non-toxic, awake and alert, atraumatic, no acute distress. SKIN: Warm, pink, dry, intact, without rashes/lesions/ulcerations. HEAD: Normocephalic, atraumatic, normal hair distribution for gender/age. EYES: Normal conjunctiva, no exudates on lids/lashes. ENT: Nares patent, no circumoral cyanosis, no facial swelling NECK: Supple, trachea midline, painless cervical ROM. LUNGS/CHEST: Lungs - expiratory wheezes, poor air movement, non-labored respirations, normal A/P diameter, symmetrical expansion, no chest wall deformity, active cough HEART (CV/PV): Regular rate and rhythm without murmur, no peripheral edema, no JVD. ABDOMEN: Soft, non-distended, no guarding, no tenderness. MSK: Normal ROM, no swelling/deformity to bilateral UEs or LEs, moving all extremities without weakness, no cyanosis, spine midline without tenderness, normal curvature. NEURO: Mental Status AAOx4 - alert to person, place, time, events No facial droop, no forehead involvement. Motor: No focal weakness - strength 5/5 in bilateral UEs and LEs, proximal and distal, symmetric. Sensory: sensation intact to light touch globally. Gait normal: patient ambulated without ataxia into ED room. PSYCH: euthymic, cooperative, pleasant, appropriate speech Course Vital Signs Vital signs: Vital Signs Temperature 36.7 C 07/25/24 17:36 Pulse 99 H 07/25/24 17:36 Respiratory Rate 30 H 07/25/24 17:36 Blood Pressure 154/77 H 07/25/24 17:36 Pulse Oximetry 96 07/25/24 17:36 Temperature 36.7 C 07/25/24 17:39 Pulse 99 H 07/25/24 17:39 Respiratory Rate 30 H 07/25/24 17:39 Respiratory Effort Normal 07/25/24 17:39 Blood Pressure 154/77 H 07/25/24 17:39 Blood Pressure Position Sitting 07/25/24 17:36 Pulse Oximetry 97 07/25/24 17:39 Oxygen Delivery Method Room Air 07/25/24 17:39 Oxygen Flow Rate 0 07/25/24 17:36 Medical Decision Making This dictation utilizes [id number] dictation software and may contain unedited grammatical errors. 69 year-old female presents to ED today by POV/ambulating with a chief complaint of shortness of breath, recently arrived [place]- notes worsened breathing with the cold dry air, with onset two days ago was seen here last night and started on doxycycline and prednisone after refusing studies. Quality described as generalized cough and shortness of breath, no radiation to severe respiratory distress, hypoxia, near syncope, chest pain, nausea/vomiting, fevers. Severity is described as severe. Palliating factors include nothing specific- has breathing treatment. Provoking factors include nothing specific. Patients' medical history: COPD. Family and social history: Recent travel from [place]. Pertinent exam findings / vital signs include expiratory wheezes and poor air movement, no hypoxia, nontoxic overall presentation, mild tachycardia. Differential / pathologies of concern include COPD exacerbation, pneumonia, viral syndrome, ACS, PE. Diagnostic studies of: -CBC, CMP, VBG, D-dimer, serial troponin, respiratory PCR swab, magnesium, chest x-ray. -CBC shows no leukocytosis -VBG shows compensated pH -CMP shows no acute abnormality -Magnesium within normal limits -Serial troponins negative -PCR swab negative -Chest x-ray shows hyperinflation without any pneumonia -D-dimer negative, no PE likely -EKG without ischemic changes Interventions of: -Given magnesium for shortness of breath as well as a 9mL DuoNeb with improvement. ED Course/Assessment/Plan: 61-year-old female presents with a respiratory distress, recently arrived from [place] states that her cough is worse with the dry cold air here in [place], has chronic COPD, negative workup today including multiple negative troponins, negative D-dimer, negative chest x-ray, recommend that she continue her home breathing treatments and doxycycline and prednisone that were prescribed at last night visit. Stressed strict return criteria for any worsening signs of respiratory distress. Findings not consistent with ACS, PE, pneumonia, sepsis. Disposition of COPD exacerbation. Patient verbalized understanding of the plan and return to ED criteria and engaged in shared decision making. Medical Records Medical records reviewed: Yes I reviewed the patient's medical records. Imaging Data Radiologic Study: Attestation: I personally reviewed and interpreted this imaging study as follows: Imaging: X-Ray Radiologist's impression: Exam: XR Chest Exam date and time: 07/25/2024 7:09 PM Age: 69 years old Clinical indication: Cough and shortness of breath; Patient HX: Cough, SOB TECHNIQUE: Imaging protocol: Radiologic exam of the chest. Views: 2 views. COMPARISON: CR XR PORTABLE CHEST AP 11/21/2023 12:01 PM FINDINGS: Lungs: The lungs are hyperinflated, consistent with underlying small airways disease. There is no evidence of focal pulmonary consolidation. The pulmonary vasculature is normal. Pleural spaces: There is no evidence of pneumothorax. There are no pleural effusions present. Heart/Mediastinum: The cardiac silhouette is within normal limits. The mediastinum is normal. Bones/joints: The spine, sternum, ribs, and pectoral girdles show no evidence of acute abnormality Soft tissues: There are no soft tissue masses or calcifications. IMPRESSION: The lungs are hyperinflated, consistent with underlying small airways disease. Dictated and Authenticated by: Shaji He MD. Lab Data Lab results reviewed: Yes I reviewed the patient's lab results. Labs: Laboratory Tests Range/Units 07/25/24 07/25/24 18:07 18:54 WBC (4.4-10.8) 10^3/uL 8.82 RBC (3.93-5.22) 10^6/uL 4.28 Hgb (11.2-15.7) g/dL 13.7 Hct (36.0-46.0) % 41.2 MCV (80-95) fL 96 H MCH (27.0-33.0) pg 32.0 MCHC (32.0-36.0) % 33.3 RDW (11.7-14.6) % 13.1 Plt Count (130-400) 10^3/uL 273 MPV (8.0-11.0) fL 10.6 Immature Gran % % 0.7 Neutrophils % % 75.3 Lymphocytes % % 15.9 Monocytes % % 7.4 Eosinophils % % 0.6 Basophils % % 0.1 Nucleated RBC % (0.0-0.3) % 0.0 Absolute Neutrophils (1.2-6.7) 10^3/uL 6.65 Absolute Lymphocytes (1.2-3.4) 10^3/uL 1.40 Absolute Monocytes (0.1-0.8) 10^3/uL 0.65 Absolute Eosinophils (0.0-0.7) 10^3/uL 0.05 Absolute Basophils (0.0-0.2) 10^3/uL 0.01 D-Dimer (<500) ng/mlFEU 403 VBG pH (7.31-7.41) 7.40 VBG pCO2 (41-51) mmHg 42 VBG pO2 mmHg 50 VBG HCO3 (23-28) mmol/L 26 VBG Total CO2 (24-29) mmol/L 23 L VBG O2 Saturation % 87 VBG Base Excess (-2-3) mmol/L 1 Sodium (136-145) mmol/L 139 Potassium (3.5-5.1) mmol/L 3.9 Chloride (98-107) mmol/L 103 Carbon Dioxide (21.0-32.0) mmol/L 27.1 Anion Gap (3-11) mmol/L 8.9 BUN (7-18) mg/dL 9 Creatinine (0.55-1.02) mg/dL 1.0 Est GFR (CKD-EPI 2020) (mL/min/1.73m2) 61.36 Glucose (74-106) mg/dL 164 H Calcium (8.5-10.1) mg/dL 9.5 Magnesium (1.8-2.4) mg/dL 1.9 Total Bilirubin (0.2-1.0) mg/dL 0.37 AST (15-37) U/L 25 ALT (14-59) U/L 27 Alkaline Phosphatase (46-116) U/L 93 Troponin I (<or=51) ng/L 4 4 Total Protein (6.4-8.2) g/dL 7.1 Albumin (3.4-5.0) g/dL 3.6 COVID-19 Source NASOPHARYNX SARS-CoV-2 (PCR) (Negative) Negative Influenza Type A (PCR) (Negative) Negative Influenza Type B (PCR) (Negative) Negative RSV (PCR) (Negative) Negative Quality:SDOH Health Related Social Needs: No Data to Display PFSH All Active Problems (Updated 07/25/24 @ 20:04 by XIN Marin) COPD exacerbation (Acute) COPD with acute exacerbation (Acute) Shortness of breath (Acute) Gluteal tendinitis of left buttock (Acute) Pain of right heel (Acute) Impacted gallstone of cystic duct (Acute) Acute cholecystitis due to biliary calculus (Acute) Painful orthopaedic hardware (Acute) Arthritis of knee, left (Acute) Medical History COPD (chronic obstructive pulmonary disease) Hypothyroidism Surgical History H/O tubal ligation History of tonsillectomy and adenoidectomy H/O bone graft Status post open reduction with internal fixation of fracture IM nail left leg Hx laparoscopic cholecystectomy Family History Mother Heart disease Father Heart disease Social History Smoking/Tobacco Use Status: Current every day Tobacco Type: cigarettes Smoking risk assessment performed?: Yes Alcohol Intake: never Drug use: Never Substance use type: does not use Details: current pack a day smoker, has dry wheeze in upper airway Housing: other Current gender identity: female Do you feel safe at home: Yes Do you feel safe in your relationship?: Yes
[2024-07-25] MEDS: MAGNESIUM SULFATE 1 GM/100 ML BAG IV_INF (18:15)
[2024-07-25] MEDS: Albuterol/Ipratropium 3 ML UPD VIAL 9 ML UPD (18:15)
[2024-07-25 18:22] LABS: Abs Immature Grans 0.06 10^3/uL (0.0-0.06); Absolute Basophil Count 0.01 10^3/uL (0.0-0.2); Absolute Eosinophil Count 0.05 10^3/uL (0.0-0.7); Absolute Monocyte Count 0.65 10^3/uL (0.1-0.8); Absolute Neutrophil Count 6.65 10^3/uL (1.2-6.7); BE (Venous) 1 mmol/L (-2-3); Basophils % 0.1 %; Eosinophils % 0.6 %; HCO3 (Venous) 26 mmol/L (23-28); HCT 41.2 % (36.0-46.0); HGB 13.7 g/dL (11.2-15.7); Immature Grans % 0.7 %; Lymphocytes % 15.9 %; MCHC 33.3 % (32.0-36.0); MCV 96 fL (80-95); MPV 10.6 fL (8.0-11.0); Monocytes % 7.4 %; Neutrophils % 75.3 %; O2 Sat (Venous) 87 %; Platelet Count 273 10^3/uL (130-400); RBC 4.28 10^6/uL (3.93-5.22); RDW 13.1 % (11.7-14.6); RDW-SD 45.9 fL; TCO2 (Venous) 23 mmol/L (24-29); WBC 8.82 10^3/uL (4.4-10.8); pCO2 (Venous) 42 mmHg (41-51); pO2 (Venous) 50 mmHg
[2024-07-25 18:44] LABS: ALT 27 U/L (14-59); AST 25 U/L (15-37); Albumin 3.6 g/dL (3.4-5.0); Alkaline Phosphatase 93 U/L (46-116); Anion Gap 8.9 mmol/L (3-11); BUN 9 mg/dL (7-18); Bilirubin, Total 0.37 mg/dL (0.2-1.0); CO2 27.1 mmol/L (21.0-32.0); Calcium 9.5 mg/dL (8.5-10.1); Chloride 103 mmol/L (98-107); Estimated GFR 61.36 (mL/min/1.73m2); Glucose 164 mg/dL (74-106); Magnesium 1.9 mg/dL (1.8-2.4); Potassium 3.9 mmol/L (3.5-5.1); Sodium 139 mmol/L (136-145); Total Protein 7.1 g/dL (6.4-8.2); Troponin I 4 ng/L (<or=51)
--- NOTE | 2024-07-25 18:45 | DI.RAD_ITS ---
Exam(s) XR CHEST 2V PA LATERAL EXAM: XR CHEST 2V PA LATERAL CLINICAL HISTORY: cough, SOB TECHNIQUE: 2D digital imaging was performed of the chest. Two images were obtained. PA and lateral views were obtained. COMPARISON: CR XR CHEST 2V PA LATERAL from 12/17/2021 CR,XR XR PORTABLE CHEST AP from 11/21/2023 FINDINGS: MEDIASTINUM: Normal. HEART: Normal. PULMONARY VASCULATURE: Normal. LUNGS: No focal consolidating infiltrates are present. Lungs appear hyperinflated which may reflect underlying COPD. PLEURAL SPACE: No pleural effusion or pneumothorax. BONE:Within normal limits for the patient's age. OTHER FINDINGS:Normal. IMPRESSION: No focal consolidating infiltrates. DATA REPOSITORY: RADIATION DOSE DELIVERED:
[2024-07-25 18:53] LABS: D-Dimer 403 ng/mlFEU (<500)
[2024-07-25 18:56] LABS: COVID-19 PCR Negative (Negative); Influenza A PCR Negative (Negative); Influenza B PCR Negative (Negative); RSV PCR Negative (Negative)
[2024-07-25 19:02] LABS: Source NASOPHARYNX
[2024-07-25 19:15] LABS: Troponin I 4 ng/L (<or=51)
--- NOTE | 2024-07-25 20:00 | DI.VRAD_ITS ---
PROCEDURE INFORMATION: Exam: XR Chest Exam date and time: 07/25/2024 7:09 PM Age: 69 years old Clinical indication: Cough and shortness of breath; Patient HX: Cough, SOB TECHNIQUE: Imaging protocol: Radiologic exam of the chest. Views: 2 views. COMPARISON: CR XR PORTABLE CHEST AP 11/21/2023 12:01 PM FINDINGS: Lungs: The lungs are hyperinflated, consistent with underlying small airways disease. There is no evidence of focal pulmonary consolidation. The pulmonary vasculature is normal. Pleural spaces: There is no evidence of pneumothorax. There are no pleural effusions present. Heart/Mediastinum: The cardiac silhouette is within normal limits. The mediastinum is normal. Bones/joints: The spine, sternum, ribs, and pectoral girdles show no evidence of acute abnormality Soft tissues: There are no soft tissue masses or calcifications. IMPRESSION: The lungs are hyperinflated, consistent with underlying small airways disease. Dictated and Authenticated by: Shaji He MD. Ordering:RAKEL Yen MD
== END 2024-07-25 20:14 | disposition home or self-care (01) ==
PROVIDERS: Emergency Provider Physician Assistant; PCP Nurse Practitioner Family
DX: J44.1 Chronic obstructive pulmonary disease with (acute) exacerbation (principal); F17.210 Nicotine dependence, cigarettes, uncomplicated
CPT/HCPCS: 36415; 80053; 82805; 87637; 93005; 94640; 96365; 99285; 71046; 83735; 84484; 85025; 85379; 93010; 99284; J3475; J7620

== ENCOUNTER 2025-04-04 15:04 | Outpatient (REF) | payer MEDICARE, SELFPAY ==
[2025-04-04 16:08] LABS: HCT 42.6 % (36.0-46.0); HGB 13.7 g/dL (11.2-15.7); MCH 31.3 pg (27.0-33.0); MCHC 32.2 % (32.0-36.0); MCV 97 fL (80-95); MPV 10.6 fL (8.0-11.0); Platelet Count 254 10^3/uL (130-400); RBC 4.38 10^6/uL (3.93-5.22); RDW 12.5 % (11.7-14.6); RDW-SD 45.1 fL; WBC 9.61 10^3/uL (4.4-10.8)
[2025-04-04 16:28] LABS: ALT 16 U/L (14-59); AST 17 U/L (15-37); Albumin 3.5 g/dL (3.4-5.0); Alkaline Phosphatase 95 U/L (46-116); Anion Gap 5.4 mmol/L (3-11); BUN 8 mg/dL (7-18); Bilirubin, Total 0.4 mg/dL (0.2-1.0); CO2 30.6 mmol/L (21.0-32.0); Calcium 9.3 mg/dL (8.5-10.1); Chloride 103 mmol/L (98-107); Estimated GFR 69.64 (mL/min/1.73m2); Glucose 99 mg/dL (74-106); Potassium 3.9 mmol/L (3.5-5.1); Sodium 139 mmol/L (136-145); TSH 0.64 uIU/mL (0.36-3.74); Total Protein 6.4 g/dL (6.4-8.2)
== END 2025-04-04 15:05 | disposition home or self-care (01) ==
LOC: NCHCN 15:04
PROVIDERS: PCP Nurse Practitioner Family; Visit Provider Family Medicine
DX: E03.9 Hypothyroidism, unspecified (principal); I10 Essential (primary) hypertension
CPT/HCPCS: 80053; 85027; 84443

== ENCOUNTER 2025-07-19 13:45 | Outpatient (CLI) | payer MEDICARE, SELFPAY ==
--- NOTE | 2025-07-19 08:53 | DI.RAD_ITS ---
Exam(s) XR SHOULDER RT COMPLETE 2+V EXAM: XR SHOULDER RT COMPLETE 2+V CLINICAL HISTORY: RIGHT SHOULDER PAIN. TECHNIQUE: 2D digital imaging was performed. COMPARISON: No exams were available for comparison FINDINGS: 3 views No evidence fracture or dislocation or abnormal soft tissue calcifications. The subacromial space is not diminished. There are no obvious degenerative changes in glenohumeral joint although there are 2 tiny calcific densities immediately adjacent to the inferior aspect of the osseous glenoid fossa, possibly significant with respect to labral or inferior glenohumeral ligament pathology. Both have similar appearance and both measure 1 mm. There are mild degenerative changes in the AC joint. Benign-appearing sclerotic densities noted in the proximal diaphysis of the humerus. IMPRESSION: Subtle findings as described above related to the inferior aspect of the osseous glenoid. May be indicative of pathology related to the inferior labrum/inferior glenohumeral ligament. If clinically indicated follow-up MRI can be performed for added sensitivity/specificity. DATA REPOSITORY: RADIATION DOSE DELIVERED:
== END 2025-07-19 13:46 | disposition home or self-care (01) ==
LOC: DIORS 13:45
PROVIDERS: PCP Nurse Practitioner Family; Referring Provider Nurse Practitioner Family; Visit Provider Student in an Organized Health Care Education/Training Program
DX: M25.511 Pain in right shoulder (principal); M75.101 Unspecified rotator cuff tear or rupture of right shoulder, not specified as traumatic; J44.9 Chronic obstructive pulmonary disease, unspecified; F17.210 Nicotine dependence, cigarettes, uncomplicated; X50.0XXA Overexertion from strenuous movement or load, initial encounter
CPT/HCPCS: 99213; 73030

== ENCOUNTER → 2025-08-08 09:08 | Outpatient (BNVA) | payer MEDICARE, SELFPAY | PROVIDERS: PCP Nurse Practitioner Family; Referring Provider Nurse Practitioner Family; Visit Provider Student in an Organized Health Care Education/Training Program | DX: M75.101 Unspecified rotator cuff tear or rupture of right shoulder, not specified as traumatic (principal); M19.011 Primary osteoarthritis, right shoulder | CPT/HCPCS: 99213; 20610; J1010 ==